=== PATIENT | male | born 1955 | race Caucasian/White ===

== ENCOUNTER 2019-03-10 01:14 | Outpatient (CLI) | payer MEDICARE, OTHER, SELFPAY ==
[2019-03-10 11:45] LABS: CREATININE 1.26 mg/dL (0.70-1.30); Calculated LDL 99 mg/dL; Cholesterol 173 mg/dL (50-200); Estimated GFR 57.44 (mL/min/1.73m2); Glucose 99 mg/dL (70-100); HDL Cholesterol 43 mg/dL (40-60); Triglyceride 157 mg/dL (30-150)
[2019-03-11 11:21] LABS: PSA, Screening 3.9 ng/ml (0-4.5)
== END 2019-03-10 01:34 ==
PROVIDERS: PCP Family Medicine; Visit Provider Family Medicine
DX: E78.5 Hyperlipidemia, unspecified (principal); I10 Essential (primary) hypertension; Z12.5 Encounter for screening for malignant neoplasm of prostate; E74.39 Other disorders of intestinal carbohydrate absorption
CPT/HCPCS: 36415; 80061; 82947; 83721; 84153; 82565; 84132

== ENCOUNTER → 2019-05-26 11:01 | Outpatient (BNVA) | payer MEDICARE, OTHER, SELFPAY | PROVIDERS: PCP Family Medicine; Referring Provider Family Medicine; Visit Provider Nurse Practitioner Gerontology | DX: R35.0 Frequency of micturition (principal); R97.20 Elevated prostate specific antigen [PSA]; I10 Essential (primary) hypertension | CPT/HCPCS: 99203 ==

== ENCOUNTER 2019-08-29 01:16 | Outpatient (CLI) | payer MEDICARE, SELFPAY ==
[2019-09-01 11:22] LABS: PSA, Screening 2.9 ng/mL (0.0-4.5)
== END 2019-08-29 01:36 ==
PROVIDERS: PCP Family Medicine; Visit Provider Nurse Practitioner Gerontology
DX: R97.20 Elevated prostate specific antigen [PSA] (principal); Z12.5 Encounter for screening for malignant neoplasm of prostate
CPT/HCPCS: 36415; 84153

== ENCOUNTER 2020-02-20 03:05 | Outpatient (CLI) | payer MEDICARE, OTHER, SELFPAY ==
[2020-02-20 12:41] LABS: CREATININE 1.54 mg/dL (0.70-1.30); Calculated LDL 105 mg/dL (<100); Cholesterol 193 mg/dL (<200); Estimated GFR 45.42 (mL/min/1.73m2); HDL Cholesterol 44 mg/dL (40-60); Potassium 3.9 mmol/L (3.5-5.1); Triglyceride 221 mg/dL (<150)
[2020-02-20 13:01] LABS: COMMENT (LAB VIEW ONLY) 138.81 mg/dL
[2020-02-20 13:21] LABS: Microalb ug/mg Crea 311.2 ug/mg Cr
[2020-02-23 10:36] LABS: PSA, Screening 3.2 ng/mL (0.0-4.5)
== END 2020-02-20 03:25 ==
PROVIDERS: Nurse Practitioner Gerontology; PCP Family Medicine; Visit Provider Family Medicine
DX: I10 Essential (primary) hypertension (principal); E78.5 Hyperlipidemia, unspecified; R39.9 Unspecified symptoms and signs involving the genitourinary system; R97.20 Elevated prostate specific antigen [PSA]; Z12.5 Encounter for screening for malignant neoplasm of prostate
CPT/HCPCS: 36415; 80061; 84153; 82043; 82565; 82570; 84132

== ENCOUNTER 2020-03-03 09:18 | Outpatient (CLI) | payer MEDICARE, OTHER, SELFPAY ==
[2020-03-03 12:37] LABS: Glucose 116 mg/dL (74-106)
[2020-03-06 15:24] LABS: Testosterone, Free 4.64 ng/dL (3.47-13.0); Testosterone, Total 258 ng/dL (240-950)
== END 2020-03-03 09:38 ==
PROVIDERS: PCP Family Medicine; Visit Provider Family Medicine
DX: R73.9 Hyperglycemia, unspecified; R35.0 Frequency of micturition; R39.15 Urgency of urination; R97.20 Elevated prostate specific antigen [PSA]
CPT/HCPCS: 36415; 82947; 84402; 84403; 99213

== ENCOUNTER → 2020-05-07 09:51 | Outpatient (BNVA) | payer MEDICARE, OTHER, SELFPAY | PROVIDERS: PCP Family Medicine; Referring Provider Family Medicine; Visit Provider Physical Therapy Assistant | DX: Z12.11 Encounter for screening for malignant neoplasm of colon (principal); I10 Essential (primary) hypertension ==

== ENCOUNTER 2020-05-24 08:08 | Day surgery (SDC) | payer MEDICARE, OTHER, SELFPAY ==
--- NOTE | 2020-05-24 07:04 | COLE_ITS ---
Date of service: 05/24/20 Time of Service: 09:42 Colonoscopy Report Date of procedure: 05/24/20 Pre-op diagnosis general: Colon Cancer Screening Post-op diagnosis procedure note: other (polyps and mild diverticulosis) Procedure: Colonoscopy with polypectomy by forceps and cold snare Surgeon: Dionne Banks Anesthesia proc note operative: other (General/ ASA 2/Britney Mckeon, MARÍA) Estimated blood loss (mL): 3 Pathology: other (cecal polyp, descending polyp) Complications: None Disposition: same day Indications: The patient is here for Colonoscopy pre-op. His last screening was in 2009 and was unremarkable. He has no family history of colon cancer. He has not had any bowel habit changes. -Discussed colonoscopy bowel prep as well as the procedure. Discussed possible complications of the procedure to include bleeding, pain, perforation, missed small lesion/polyp, sore throat, aspiration and adverse reaction to the medications. Questions were answered to patient?s satisfaction. No guarantees were implied or given. Prep: Miralax/Dulcolax Procedure Start Time: :12 Procedure End Time: :34 Retraction Time: 15 minutes Findings: one small sessile polyp and one small pedunculated polyp Mild right sided diverticulosis Procedure Description: After informed consent was obtained the patient was taken to the procedure room and placed in a left decubitous position. Monitors were applied and a time out was done. The patients name, date of , procedure, allergies to medications and metal in their body was reviewed. The patient was then sedated. Once sedated and comfortable a rectal exam was done. External exam was normal. Internal exam revealed a normal sphincter tone and no palpable masses. The prostate felt smooth and slightly enlarged. The scope was then introduced and retro-flexed. No internal hemorrhoids, masses or polyps were identified on retro-flexion. The scope was then advanced to the cecum without difficulty. The ileocecal valve and appendiceal orifice were identified. The prep was good. The scope was then slowly retracted over 15 minutes back into the rectum. Polyps were removed with cold forceps in the cecum and with cold snare in the descending colon. There was mild diverticulo sis of the cecum and ascending colon. The scope was removed and the patient was woken up and taken back to Same day surgery in stable condition. The patient tolerated the procedure well and there were no immediate complications. Follow up: The patient should follow up in 3-5 years unless they develop changes in bowel habits or other new gastrointestinal complaints.
--- NOTE | 2020-05-24 07:06 | W.PM.DSUDISC ---
Discharge Plan Disposition Patient Disposition: HOME Condition: Good Discharge Details Reason For Visit: Colonoscopy Attending Provider: Dionne Banks Primary Care Provider: Alen Alexandre Home Meds and New Rx's Prescriptions: Continued aspirin [Aspir-81] 81 mg tablet,delayed release (DR/EC) 81 mg PO DAILY Qty: 90 RF: 3 amlodipine [Norvasc] 10 mg tablet 10 mg PO DAILY Qty: 90 RF: 3 atenolol 100 mg tablet 100 mg PO DAILY Qty: 90 RF: 3 atorvastatin 40 mg tablet 40 mg PO QPM Qty: 90 RF: 3 losartan [Cozaar] 100 mg tablet 100 mg PO DAILY Qty: 90 RF: 3 sildenafil (pulm.hypertension) 20 mg tablet 20 - 60 mg PO DAILY MDD 60 mg (per insurance) PRN (Reason: sexual activity) Qty: 30 RF: 5 Discontinued polyethylene glycol 3350 17 gram/dose powder 238 g PO ONCE Qty: 238 RF: 0 bisacodyl [Dulcolax (bisacodyl)] 5 mg tablet,delayed release (DR/EC) 5 mg PO ONCE Qty: 4 RF: 0 Discharge Instructions Instructions: Diverticulosis (DC), Colorectal Polyps (DC) Additional Instructions: Findings: 2 polyps mild diverticulosis Follow up: 3-5 years Please call if you develop: fevers >101.5 Nausea or Vomiting Abdominal pain that is not transient DAY SURGERY UNIT POST ENDOSCOPY INSTRUCTIONS 1. Because there will be medication in your system for the next 24 hours, you may feel a little sleepy. Your coordination will be affected. Therefore: a. Do not drive or operate dangerous equipment for 24 hours. b. Do not drink alcohol beverages for 24 hours (not even beer). c. Plan to go home and rest for the day. 2. Generally there are no restrictions on your activity after a day or so has gone by, but you may feel a bit fatigued for a few days. 3 After you arrive home you may have a light meal and return to a normal diet as you can tolerate it without feeling sick to your stomach. 4. After surgery, you may feel pain or discomfort. This should be only transient, but if it persists please contact your doctor. 5. If there are any questions regarding the findings of your procedure, please feel free to contact your doctor. 6. If you are unable to contact your doctor with a problem, contact the hospital at [phone]. 3. Continue all your regular medications unless directed otherwise. I understand the above instructions and have no questions. Signature of Patient or Responsible Adult Escort Date/Time Name of Responsible Adult Escort Signature of Nurse Date/Time Activity:: Activity as Tolerated Diet:: high fiber diet Discharge Orders Discharge Orders: Discharge Order (Routine); Ordered 05/24/20 Ordered By: Dionne Banks
[2020-05-24 08:14] VITALS: BP 150/96; PULSE 62; RESP 20; TEMP 36.5; O2SAT 95
[2020-05-24] MEDS: Lactated Ringers 1,000 ML 80 ML IV (08:36)
--- NOTE | 2020-05-24 09:20 | BOWEL_PTH ---
PATIENT: Juan Ortiz LOC: [facility] U#:[id number] AGE/SX: 64/M ROOM: RE05/24/[address]: Dionne Banks MD : [id number] BED: DIS: 05/24/2020 SPEC #: [id number] RECD: 05/24/20 12:51 STATUS: KRISHAN REQ #: [id number] EMMANUEL: 05/24/20 09:[address]: Dionne Banks DEPT: Surgical Specimen RECD BY: Lissette Rashid ENTERED: 05/24/20 12:51 SP TYPE: Bowel OTHR DR: Alen Alexandre MD Tissues: 1 - BIOPSY BOWEL 2 - BIOPSY BOWEL Procedures: GROSS AND MICRO LEVEL 4 Comments: [id number]
[2020-05-24 10:10] VITALS: BP 128/80; PULSE 52; RESP 18; TEMP 36.6; O2SAT 98
== END 2020-05-24 10:33 | disposition home or self-care (01) ==
PROVIDERS: PCP Family Medicine; Visit Provider Surgery
PROC: 0DJD8ZZ Inspection of Lower Intestinal Tract, Via Natural or Artificial Opening Endoscopic (ICD-10-PCS; CPT 45378; principal; 2020-05-24 09:30)
DX: Z12.11 Encounter for screening for malignant neoplasm of colon (principal); D12.0 Benign neoplasm of cecum; D12.4 Benign neoplasm of descending colon; I10 Essential (primary) hypertension; E78.00 Pure hypercholesterolemia, unspecified
CPT/HCPCS: 45385; 45380; 88305; J2001

== ENCOUNTER 2020-07-12 15:40 | Outpatient (CLI) | payer MEDICARE, OTHER, SELFPAY ==
--- NOTE | 2020-07-12 15:15 | DI.RAD_ITS ---
EXAM: XR KNEE LT 3V AP,LAT,BILLY CLINICAL HISTORY: left knee pain. TECHNIQUE: 2D digital imaging was performed. COMPARISON: CR XR KNEE RT 3V AP,LAT,BILLY from 07/12/2020 FINDINGS: There is no evidence of acute fracture. The does appear to be a joint effusion and posteriorly there is a prominent calcification which is probably within popliteal fossa Ingram cyst. This calcificatio n measures 2 x 1.8 centimetres. There is advanced [id number] narrowing of the medial compartment. Moderate degenerative changes including calcinosis seen in the lateral compartment. Moderate-advanc ed degenerative changes in patellofemoral compartment. No osseous lesions. IMPRESSION: Advanced osteoarthritic degenerative changes. Joint effusion. 20 x 18 millimeter posterior calcific ation which is probably within a Ingram cyst in the medial popliteal fossa. DATA REPOSITORY: RADIATION DOSE DELIVERED:
--- NOTE | 2020-07-12 15:15 | DI.RAD_ITS ---
EXAM: XR KNEE RT 3V AP,LAT,BILLY CLINICAL HISTORY: right knee pain. TECHNIQUE: 2D digital imaging was performed. COMPARISON: CR RIGHT KNEE COMPLETE from 12/10/2008 FINDINGS: Two views reveal no evidence of fracture. Small joint effusion noted. Advanced osteoarthritic degen erative changes are noted. There is moderate joint space narrowing in the medial compartment margina l osteophytes. Less narrowing of the lateral compartment but with chondrocalcinosis. Advanced degen erative changes in the patellofemoral compartment. IMPRESSION: Advanced osteoarthritic changes. Small joint effusion. DATA REPOSITORY: RADIATION DOSE DELIVERED:
== END 2020-07-12 16:00 ==
PROVIDERS: PCP Family Medicine; Referring Provider Family Medicine; Visit Provider Student in an Organized Health Care Education/Training Program
DX: M17.0 Bilateral primary osteoarthritis of knee (principal); M25.462 Effusion, left knee; M25.461 Effusion, right knee; Z98.890 Other specified postprocedural states
CPT/HCPCS: 73562; 99203; 99214

== ENCOUNTER 2020-08-03 14:19 | Outpatient (CLI) | payer MEDICARE, OTHER, SELFPAY ==
--- NOTE | 2020-08-03 14:00 | DI.RAD_ITS ---
EXAM: XR STANDING ALIGNMENT and XR knee LT 1 V CLINICAL HISTORY: PRE OP L TKA. TECHNIQUE: 2D digital imaging was performed. COMPARISON: CR XR KNEE RT 3V AP,LAT,BILLY from 07/12/2020 CR XR KNEE LT 3V AP,LAT,BILLY from 07/12/2020 CR XR KNEE LT 3V AP,LAT,BILLY from 07/12/2020 FINDINGS: The hips are well maintained. There are again seen marked degenerative changes of the right knee renetta racterized by joint space narrowing, periarticular spurring and subchondral sclerosis. Chondrocalcin osis is present. The findings are most marked in the medial femoral tibial joint. Advanced degenera tive changes are also seen in the left knee characterized by joint space narrowing, subchondral scler osis and periarticular spurring. Chondrocalcinosis is present. There is a small left joint effusion . Atherosclerosis is present. The ankles are well maintained. The right lower extremity measures 8 9.4 cm. The left lower extremity measures 80.9 cm. IMPRESSION: Advanced degenerative changes in both knees. DATA REPOSITORY: RADIATION DOSE DELIVERED:
== END 2020-08-03 14:39 ==
PROVIDERS: PCP Family Medicine; Referring Provider Family Medicine; Visit Provider Physician Assistant
DX: M17.0 Bilateral primary osteoarthritis of knee (principal)
CPT/HCPCS: 73560; 77073

== ENCOUNTER 2020-08-05 01:29 | Outpatient (CLI) | payer MEDICARE, OTHER, SELFPAY ==
[2020-08-05 09:28] LABS: HCT 44.8 % (40.0-50.0); HGB 15.7 g/dL (13.5-17.5); MCH 30.2 pg (27.0-33.0); MCV 86.2 fL (80-95); MPV 9.3 fL (8.0-11.0); Platelet Count 269 10^3/uL (130-400); RDW 11.9 % (11.8-14.1); RDW-SD 37.6 fL; WBC 8.75 10^3/uL (4.4-10.8)
[2020-08-05 10:25] LABS: Anion Gap 6.9 mmol/L (3-11); BUN 21 mg/dL (7-18); CO2 28.1 mmol/L (21.0-32.0); CREATININE 1.62 mg/dL (0.70-1.30); Calcium 9.1 mg/dL (8.5-10.1); Chloride 105 mmol/L (98-107); Estimated GFR 42.84 (mL/min/1.73m2); Glucose 98 mg/dL (74-106); Potassium 3.9 mmol/L (3.5-5.1); Sodium 140 mmol/L (136-145)
== END 2020-08-05 01:49 ==
PROVIDERS: PCP Family Medicine; Visit Provider Student in an Organized Health Care Education/Training Program
DX: M25.562 Pain in left knee (principal); M17.12 Unilateral primary osteoarthritis, left knee; Z01.818 Encounter for other preprocedural examination; Z01.812 Encounter for preprocedural laboratory examination
CPT/HCPCS: 36415; 80048; 85027

== ENCOUNTER 2020-08-05 02:40 | Outpatient (CLI) | payer MEDICARE, OTHER, SELFPAY ==
[2020-08-06 16:54] LABS: COVID-19 RT-PCR UVMMC Result Negative (Negative)
== END 2020-08-05 03:00 ==
PROVIDERS: PCP Family Medicine; Visit Provider Student in an Organized Health Care Education/Training Program
DX: Z11.59 Encounter for screening for other viral diseases (principal); Z01.818 Encounter for other preprocedural examination
CPT/HCPCS: 36415; 80048; 85027; U0003

== ENCOUNTER 2020-08-10 08:19 | Day surgery (SDC) | payer MEDICARE, OTHER, SELFPAY ==
[2020-08-10] VITALS (7 sets, daily range): BP systolic 115–156; BP diastolic 65–97; PULSE 53–59; RESP 11–18; TEMP 36.1–36.6; O2SAT 95–98
[2020-08-10] MEDS: Lactated Ringers 1,000 ML 80 ML IV (09:20)
[2020-08-10] MEDS: Gabapentin 300 MG CAP PO (09:37)
[2020-08-10] MEDS: Acetaminophen 500 MG TAB 1000 MG PO ×2 (09:37→15:24)
[2020-08-10] MEDS: Celecoxib 200 MG CAP 400 MG PO (09:37)
--- NOTE | 2020-08-10 09:45 | W.PM.DS.N ---
Documented by User: Sandra Crespoxon 08/10/20 09:51 DS: Diagnosis Discharge Diagnosis (1) Left knee DJD: Status: Chronic Discharge Plan Disposition Patient Disposition: HOME Condition: Good Discharge Details Reason For Visit: Left knee DJD Attending Provider: Howard Hernandez Primary Care Provider: Alen Alexandre Home Meds and New Rx's Prescriptions: New acetaminophen 500 mg tablet 500 mg PO Q6H PRN (Reason: pain) Qty: 60 RF: 2 celecoxib [Celebrex] 200 mg capsule 200 mg PO BID Qty: 60 RF: 0 docusate sodium [Colace] 100 mg capsule 100 mg PO BID Qty: 30 RF: 0 pantoprazole 40 mg tablet,delayed release (DR/EC) 40 mg PO DAILY Qty: 30 RF: 0 oxycodone 5 mg tablet 5 mg PO Q4H PRN (Reason: severe post-operative pain) Qty: 18 RF: 0 aspirin 81 mg tablet,delayed release (DR/EC) 81 mg PO BID Qty: 60 RF: 0 Continued amlodipine [Norvasc] 10 mg tablet 10 mg PO DAILY Qty: 90 RF: 3 atenolol 100 mg tablet 100 mg PO DAILY Qty: 90 RF: 3 atorvastatin 40 mg tablet 40 mg PO QPM Qty: 90 RF: 3 losartan [Cozaar] 100 mg tablet 100 mg PO DAILY Qty: 90 RF: 3 sildenafil (pulm.hypertension) 20 mg tablet 20 - 60 mg PO DAILY MDD 60 mg (per insurance) PRN (Reason: sexual activity) Qty: 30 RF: 5 Discontinued aspirin [Aspir-81] 81 mg tablet,delayed release (DR/EC) 81 mg PO DAILY Qty: 90 RF: 3 Discharge Instructions Additional Instructions: Total Knee Discharge Instructions Activity: The most important activity is to walk. You should try to take short walks a few times a day. It is important that when resting you work on keeping the knee straight. Avoid putting a pillow behind the knee as this will encourage flexion. Work on range of motion exercises as provided by Physical Therapy. - Start outpatient physical therapy within 2 weeks. - You should wear the DANNIELLE hose on both legs for 2 weeks. Dressing: Keep the surgical dressing in place for at least one week. After the first week it may be removed and replace with light gauze and tape or nothing. It may get wet after 3 days but avoid soaking the dressing. If it gets wet, just lightly pat dry. Medications: - You should take Tylenol and anti-inflammatory Celebrex as your primary pain control medications. If the Celebrex is too expensive or not covered, please call the office for another alternative (Advil/Ibuprofen or Naproxen/Aleve). Had previously discussed your reaction to Sulfa medications, since you did not experience an anaphylactic reaction you are able to take Celebrex. If you develop any symptoms please contact office; if you experience difficulty breathing or throat swelling you should present to emergency room immediately. - You have been prescribed a stronger pain medication Oxycodone for breakthrough pain, take as needed as prescribed. - You have also been prescribed a stomach acid reduction agent Pantoprozole to help reduce stomach acid and reflux. - You will be taking Aspirin 81mg twice a day for DVT prevention unless instructed otherwise. - If you have constipation you should take Colace (which was prescribed) or Miralax (which you may purchase [id number]). It takes most people 3-4 days to have a bowel movement. Follow-up: 2 weeks If you have any acute concerns or questions, please do not hesitate to contact the office at [phone]. You may contact Dr. Hernandez with any questions after hours through the hospital at [phone] or on his cell phone at [phone]. Stand Alone Forms: Anes.Nerve Block Instructions, DSU Post op Instructions Referrals: Howard Hernandez MD [ [facility] STAFF PHYSICIAN] - 08/23/20 11:00 am Equipment/Supplies: Walker Activity:: Elevate Remove Dressings/Wound Care:: Do Not Remove Shower/Bathe:: 72 hours Diet:: As Tolerated Discharge Orders Discharge Orders: Discharge Order (Routine); Ordered 08/10/20 Ordered By: Howard Hernandez DS: Data Vitals/I&O Vitals and I&O: Vital Signs Temperature 36.6 C 08/10/20 08:52 Pulse 57 L 08/10/20 08:52 Pulse Rhythm Regular 08/10/20 08:52 Respiratory Rate 18 08/10/20 08:52 Respiratory Depth Normal 08/10/20 08:52 Blood Pressure 156/97 H 08/10/20 08:52 Pulse Oximetry 96 08/10/20 08:52 Oxygen Delivery Method Room Air 08/10/20 08:52 Oxygen Flow Rate 0 08/10/20 08:52 Pain Level 0 08/10/20 08:52 Intake & Output 08/09/20 08/09/20 08/10/20 11:59 23:59 11:59 Weight 92 kg PFSH Medical History Degenerative joint disease of right knee Family history of coronary arteriosclerosis (12/20/15) Father at 50 Family history of diabetes mellitus (12/20/15) mother Left knee DJD 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) Rising PSA level Screening for colon cancer Surgical History H/O hernia repair History of knee surgery Hx of colonoscopy KNEE SURGERY bilateral Skin Cancer Removal MELANOMA Family History Mother , 65 Diabetes Essential hypertension Heart disease Father , 53 Diabetes Essential hypertension Heart disease Sister Diabetes Hyperlipidemia Heart disease Hypertension Social History Smoking/Tobacco Use Status: Never Smoking risk assessment performed?: Yes Alcohol Intake: current Alcohol Intake frequency: a few times a month Alcohol type: beer Drug use: Rarely Substance use type: marijuana Caregiver/Support person: No Household members: spouse Housing: house Communication Needs: None Pets and animals: No Sexually active: Yes Do you think of yourself as: straight/heterosexual Current gender identity: male What is your relationship status?: How often do you talk on the phone with friends or family?: three or more times per week How often do you get together with friends or relatives?: three or more times per week How often do you attend jehovah's witness or latter day services?: 1-3 times per year Do you belong to any clubs or organized social groups?: decline to answer Panel score (0-1 are the most socially isolated patients): 2 What type of physical activity do you participate in: walking, swimming and other Duration: 45-60 minutes/day Frequency: 5-6 times per week Sonja/Restorationism: Tenriism Special sonja needs: No Seatbelt use: always Drive intox or ride w/intox trolley coach driver: No Do you feel safe at home: Yes Do you feel safe in your relationship?: Yes Documented by User: Howard Hernandez MD 08/10/20 15:08 Date of service: 08/10/20 Time of Service: 15:06 Discharge Plan Disposition Patient Disposition: HOME Condition: Good Discharge Details Reason For Visit: Left knee DJD Attending Provider: Howard Hernandez Primary Care Provider: Alen Alexandre Home Meds and New Rx's Prescriptions: New acetaminophen 500 mg tablet 500 mg PO Q6H PRN (Reason: pain) Qty: 60 RF: 2 celecoxib [Celebrex] 200 mg capsule 200 mg PO BID Qty: 60 RF: 0 docusate sodium [Colace] 100 mg capsule 100 mg PO BID Qty: 30 RF: 0 pantoprazole 40 mg tablet,delayed release (DR/EC) 40 mg PO DAILY Qty: 30 RF: 0 oxycodone 5 mg tablet 5 mg PO Q4H PRN (Reason: severe post-operative pain) Qty: 18 RF: 0 aspirin 81 mg tablet,delayed release (DR/EC) 81 mg PO BID Qty: 60 RF: 0 Continued amlodipine [Norvasc] 10 mg tablet 10 mg PO DAILY Qty: 90 RF: 3 atenolol 100 mg tablet 100 mg PO DAILY Qty: 90 RF: 3 atorvastatin 40 mg tablet 40 mg PO QPM Qty: 90 RF: 3 losartan [Cozaar] 100 mg tablet 100 mg PO DAILY Qty: 90 RF: 3 sildenafil (pulm.hypertension) 20 mg tablet 20 - 60 mg PO DAILY MDD 60 mg (per insurance) PRN (Reason: sexual activity) Qty: 30 RF: 5 Discontinued aspirin [Aspir-81] 81 mg tablet,delayed release (DR/EC) 81 mg PO DAILY Qty: 90 RF: 3 Discharge Instructions Additional Instructions: Total Knee Discharge Instructions Activity: The most important activity is to walk. You should try to take short walks a few times a day. It is important that when resting you work on keeping the knee straight. Avoid putting a pillow behind the knee as this will encourage flexion. Work on range of motion exercises as provided by Physical Therapy. - Start outpatient physical therapy within 2 weeks. - You should wear the DANNIELLE hose on both legs for 2 weeks. Dressing: Keep the surgical dressing in place for at least one week. After the first week it may be removed and replace with light gauze and tape or nothing. It may get wet after 3 days but avoid soaking the dressing. If it gets wet, just lightly pat dry. Medications: - You should take Tylenol and anti-inflammatory Celebrex as your primary pain control medications. If the Celebrex is too expensive or not covered, please call the office for another alternative (Advil/Ibuprofen or Naproxen/Aleve). Had previously discussed your reaction to Sulfa medications, since you did not experience an anaphylactic reaction you are able to take Celebrex. If you develop any symptoms please contact office; if you experience difficulty breathing or throat swelling you should present to emergency room immediately. - You have been prescribed a stronger pain medication Oxycodone for breakthrough pain, take as needed as prescribed. - You have also been prescribed a stomach acid reduction agent Pantoprozole to help reduce stomach acid and reflux. - You will be taking Aspirin 81mg twice a day for DVT prevention unless instructed otherwise. - If you have constipation you should take Colace (which was prescribed) or Miralax (which you may purchase [id number]). It takes most people 3-4 days to have a bowel movement. Follow-up: 2 weeks If you have any acute concerns or questions, please do not hesitate to contact the office at [phone]. You may contact Dr. Hernandez with any questions after hours through the hospital at [phone] or on his cell phone at [phone]. Stand Alone Forms: Anes.Nerve Block Instructions, DSU Post op Instructions Referrals: Howard Hernandez MD [ [facility] STAFF PHYSICIAN] - 08/23/20 11:00 am Equipment/Supplies: Walker Activity:: Elevate Remove Dressings/Wound Care:: Do Not Remove Shower/Bathe:: 72 hours Diet:: As Tolerated Discharge Orders Discharge Orders: Discharge Order (Routine); Ordered 08/10/20 Ordered By: Howard Hernandez DS: Summary Status at Discharge Functional status at discharge: uses cane/walker Overall status at discharge: patient is progressing back to baseline Mental Status: mental status grossly normal Speech and Movement: speech and movement normal Mood: congruent mood Affect: normal affect Exam Psych Mental Status: mental status grossly normal Speech and Movement: speech and movement normal Mood: congruent mood Affect: normal affect COUNTS INCLUDE 234 BEDS AT THE [facility] Medical History Degenerative joint disease of right knee Family history of coronary arteriosclerosis (12/20/15) Father at 50 Family history of diabetes mellitus (12/20/15) mother Left knee DJD 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) Rising PSA level Screening for colon cancer Surgical History H/O hernia repair History of knee surgery Hx of colonoscopy KNEE SURGERY bilateral Skin Cancer Removal MELANOMA Family History Mother , 65 Diabetes Essential hypertension Heart disease Father , 53 Diabetes Essential hypertension Heart disease Sister Diabetes Hyperlipidemia Heart disease Hypertension Social History Smoking/Tobacco Use Status: Never Smoking risk assessment performed?: Yes Alcohol Intake: current Alcohol Intake frequency: a few times a month Alcohol type: beer Drug use: Rarely Substance use type: marijuana Caregiver/Support person: No Household members: spouse Housing: house Communication Needs: None Pets and animals: No Sexually active: Yes Do you think of yourself as: straight/heterosexual Current gender identity: male What is your relationship status?: How often do you talk on the phone with friends or family?: three or more times per week How often do you get together with friends or relatives?: three or more times per week How often do you attend jehovah's witness or latter day services?: 1-3 times per year Do you belong to any clubs or organized social groups?: decline to answer Panel score (0-1 are the most socially isolated patients): 2 What type of physical activity do you participate in: walking, swimming and other Duration: 45-60 minutes/day Frequency: 5-6 times per week Sonja/Restorationism: Tenriism Special sonja needs: No Seatbelt use: always Drive intox or ride w/intox trolley coach driver: No Do you feel safe at home: Yes Do you feel safe in your relationship?: Yes
[2020-08-10] MEDS: ceFAZolin 2 GM/50 ML BAG IVPB (10:47)
[2020-08-10] MEDS: Bupivacaine 0.25% Pres-Free 30 ML VIAL (11:19)
[2020-08-10] MEDS: Bupivacaine LIPOSOME/PF 133 MG/10 ML VIAL IJ (11:20)
[2020-08-10] MEDS: Ketorolac 30 MG/ML VIAL (11:20)
[2020-08-10] MEDS: Normal Saline 50 ML (11:20)
--- NOTE | 2020-08-10 13:50 | PT.INIE ---
Date of service: 08/10/20 Time of Service: 13:50 PT Notes Visit Reasons: Left knee DJD Physical Therapy Inpatient Initial Evaluation Date: 08/10/2020 Referring Doctor: POONAM Constantino PT Orders: PT CONSULT: Status post Ortho surgery. Precautions: Fall. Standard. WBAT on the left LE. Patient Profile/Admitting Diagnosis: Juan is a 64-year-old male with primary unilateral osteoarthritis of the left knee and status post left total knee arthroplasty on postoperative day 0. 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 Independent with all aspects of ADLs prior to surgery. No falls in the past 12 months. Equipment Owned/DME: [facility], [facility] Subjective: Agreeable to PT consult. Reports 1-2/10 pain in the left knee with weight bearing. Denies headache, chest pain, and dizziness throughout session. Objective: General Observation: Supine in stretcher. IV in right UEs. Сергей wraps in left knee. Cryocuff on left knee. TDS on right leg. Mental Status: Alert and oriented x4 Pain: 1?2/10 pain in the left knee. Vital Signs: Within normal limits as monitored before during and after PT consult by nurse Sanz ROM: Right Upper Extremity: Shoulder Flexion WFL. Shoulder abduction WFL. Elbow flexion WFL. Wrist flexion WFL. Opening and closing of hand WFL. Left Upper Extremity: Shoulder Flexion WFL. Shoulder abduction WFL. Elbow flexion WFL. Wrist flexion WFL. Opening and closing of hand WFL. Right Lower Extremity: Hip flexion WFL. Hip abduction WFL. Knee flexion WFL. Ankle dorsiflexion WFL. Ankle plantarflexion WFL. Left Lower Extremity: Hip flexion WFL. Hip abduction WFL. Knee flexion 10 to 95 degrees. Knee extension -10 degrees ankle dorsiflexion WFL. Ankle plantarflexion WFL. Strength: Right Upper Extremity: Shoulder flexors 5/5. Shoulder abductors 5/5. Elbow flexors 5/5. Elbow extensors 5/5. Business Analysis Analyst strong. Left Upper Extremity: Shoulder flexors 5/5. Shoulder abductors 5/5. Elbow flexors 5/5. Elbow extensors 5/5. Business Analysis Analyst strong. Right Lower Extremity: Hip flexors 5/5. Hip abductors 5/5. Knee flexors 5/5. Knee extensors 5/5. Ankle dorsiflexors 5/5. Ankle plantarflexors 5/5. Left Lower Extremity:Hip flexors 5/5. Hip abductors 5/5. Knee flexors 3-/5. Knee extensors 3-/5. Ankle dorsiflexors 5/5. Ankle plantarflexors 5/5. Sensation: Intact as to pain and pressure on bilateral lower extremities. Bed Mobility/Transfers: Rolling independent Supine to sit independent Sit to supine independent Sit to stand standby assist Stand to sit standby assist standby Bed to chair assist standby assist Chair to bed assist standby assist Gait: Guided through level surface ambulation of 200 feet using front wheeled walker with standby assist of PT and nurse Umu. Step to gait pattern. Decreased arjun. THERA EX: Instructed on seated level balance exercises consisting of seated hip flexion x 10, LAQs x 10, hip abduction/adduction x 10 without increase in pain. Balance: Static Sitting: Normal Dynamic Sitting: Normal Static Standing: Fair Dynamic Standing: Fair Special Tests: Mobility Limitations Standardized Measure [facility] AM-PAC 6 clicks Basic Mobility Inpatient Short Form: Raw Score: 22 CMS Score: 21% deficit Informed Consent/Education: Patient instructed in purpose of PT consult. HEP instruction, activity intensity, and weight bearing recommendations reviewed with patient. Assessment: Juan requires the use of a front wheeled walker for all mobility ADL performance in order to maximize independence and reduce fall risk at home. He will benefit from outpatient physical therapy services in order to regain independent mobility level without an assistive device. Patient presents with clinical signs and symptoms consistent with current/admitting diagnoses that have resulted to mobility limitations, gait instability, generalized weakness, and impairment of motor control as demonstrated by the following impairment level findings: 1. Decreased strength to left knee major muscle groups 2. Impaired standing balance 3. Impaired activity tolerance 4. Limitation of joint range of motion in left knee Impairments are contributing to the following functional limitations: 1. Inability to safely ambulate without assistive device 2. Increase completion time for mobility ADL performance 3. Increased fall risk 4. Inability to negotiate steps alone safely Patient is assessed as a 18895 moderate complexity based on the following: History: 64-year-old male with impairment level findings, functional limitations, and past medical history as indicated above Examination: Demonstrable impairment in strength, balance, and mobility level with underlying impairments and functional limitations as documented above Presentation:Evolving Decision Makin moderate complexity Goals: N/A. PT evaluation 1 treatment session only for mobility ADL education/training using the front wheeled walker and for HEP instruction. Plan of Care/Treatment Plan: N/A. PT evaluation 1 treatment session only for mobility ADL education/training using the front wheeled walker and for HEP instruction. DISCHARGE RECOMMENDATIONS: Home when cleared by orthopedic surgeon. Outpatient PT services to regain independent mobility level without an assistive device. TREATMENT CODE/TIME: 39070 x 25 minutes, 97 0 x 15 minutes, 15 minutes beginning at 13:50 PM. Thank you for the opportunity to participate in the care of this patient. Adri Olivas PT, DPT, CLT [facility] [place], [place]
--- NOTE | 2020-08-10 20:56 | W.PM.OP ---
Date of service: 08/10/20 Time of Service: 12:56 Operative Note Operative Note DATE OF PROCEDURE: 08/10/20 PRE-OP DIAGNOSIS: Left Knee Osteoarthritis POST-OP DIAGNOSIS: same PROCEDURE: Left Total Knee Replacement SURGEON: Howard Hernandez [employer] SAL[employer] REPRESENTATIVE: Sandra Anthony ANESTHESIA: regional and spinal ESTIMATED BLOOD LOSS: 200 PATHOLOGY: none sent TOURNIQUET TIME: 0 COMPLICATIONS: None Patient was transported to: PACU Patient's condition: stable Implants: 1. Depuy Attune Cementless Cruciate Retaining Femoral Component, Size 9 2. Depuy Attune Cementless Rotating Platform Tibial Component, Size 7 3. Depuy Attune 9x5mm CR/RP Poly 4. Depuy Attune Patellar Component, Size 38mm Indications: I have seen Juan in clinic for symptoms of knee arthritis, confirmed with radiographic findings. Juan has exhausted nonoperative methods and was having significant limitations in daily function and desired better function and less pain. I discussed the technical details of a knee replacement. I explained the risks of the procedure to include, but not limited to, bleeding, infection, pain, stiffness, fracture, damage to nerves and vessels, damage to muscles and tendons, loosening, need for repeat procedure, blood clot and cardiopulmonary demise. Despite these risks, Juan elected to proceed. Findings: There was significant signs of arthritis throughout the knee with deformity of all 3 compartments and large osteophytes. Procedure Description: Juan was greeted in the preoperative holding area where the correct side was identified and marked. The consent was reviewed with the patient and signed. The history and physical was updated. All questions were answered. Preoperative medications were administered: Acetaminophen 1000mg, Celebrex 400mg, and Gabapentin 300mg. An adductor canal block was then administered by the anesthesia team in the PACU. Juan was taken back to the operating room. A spinal anesthestic was then administered. The patient was placed into the supine position on the operating room table. A nonsterile tourniquet was placed high onto the leg but only used for cementing. Posts were placed for positioning during the procedure. All bony prominences were well padded. Prophylactic antibiotics in the form of Cefazolin were administered. 1g of Tranxemic Acid was given intravenously within 30 minutes of incision. The left leg was then prepped with Chloraprep and draped in a standard fashion with impervious stockinette. A second prep with Chloraprep was performed prior to application of Iodine impregnated skin protection. A timeout to confirm correct identity, side and site, procedure, allergies, anesthesia, and medical concerns was performed. With the knee in some flexion, a midline incision was made overlying the knee. Full thickness skin flaps were raised once the extensor mechanism was encountered. These were raised medially and laterally. Any bleeding was controlled with electrocautery. Once the extensor mechanism was fully exposed, a medial parapatellar arthrotomy was performed in a flexed position. All bleeding from the arthrotomy and the geniculate arteries was coagulated. A medial subperiosteal peel was performed with electrocautery to the midcoronal plane. Due to the significant varus deformity the entire medial tibial plateau was exposed. The fat pad was removed while keeping the patellar tendon protected. The anterior distal femur synovium was removed for later visualization. The ACL and PCL were resected and the anterior horn of the lateral meniscus was transected. The knee was then flexed with the patella everted. Large osteophytes from the tibia were removed. Large osteophytes from the femur were removed. Using a step drill, and based on preoperative templating, the femoral canal was entered. This was done with a step drill without any difficulty. The intramedullary distal femoral cut guide was inserted, set to a 5 degree valgus cut and 10mm cut thickness. The distal femoral cut guide was then held in position and pinned. With the soft tissues protected, the distal cut was performed. This was passed over a few times to ensure a planar cut. I then turned attention to the tibia. The extramedullary guide was placed onto the leg. The distal aspect was slid medial to adjust for position of center of ankle and stay in line with shaft of the tibia. Approximately 3-5 degrees of posterior slope was kept in the proximal cutting guide. The center of the guide was aligned with the PCL. The stylus was used to assess cut thickness. The medial side, most involved side, was set for a 3mm cut. This was then held in position and pinned into place with 2 additional pins and a cross pin for stability. The medial and lateral collateral ligaments were protected and the cut was performed. With this completed, it was assessed and noted to be of appropriate dimensions. The guide was removed. A spacer block was inserted and the knee was brought into extension. The 5mm spacer block provided full extension, without hyperextension and with stability of both the medial and lateral collateral ligaments was assessed. The pins from the femur and the tibia were then removed. The distal femur was then sized. The anterior stylus was placed onto the lateral ridge of the anterior femur. This indicated a size 8 femur. The external rotation of the guide was adjusted to 3 degrees to match the epicondylar axis, perpendicular to Cartwright?s line. The 4-in-1 cutting guide was the placed. The posterior medial femur cut was evaluated and appeared of good thickness. The spacer block was inserted underneath the cutting guide and stability was confirmed in 90 degrees of flexion. However this showed some increased laxity with the 5mm spacer which was mostly symmetrical. Therefore, I went up to a size 9 femur and moved the femoral component posteriorly 1.5mm. An samantha wing was used to confirm appropriate position of the anterior cut to avoid notching. This cutting guide was ensured to be flush on the cut surface and then pinned into place with headed pins. While protecting the soft tissues, quad tendon, and collateral ligaments, the anterior and posterior cuts were performed with a saw. The central two pins were removed and the posterior and anterior chamfers were cut next. The notch-cutting guide was placed. This was pinned to lateralize the femoral component as much as possible while keeping it flush on the cut surface. This was then pinned into position. A reciprocating saw was used to make the notch cut. A rasp smoothed the cut surfaces. The medial and lateral menisci were removed. A trial femoral component was then inserted, impacted down to the cut surfaces, and the lug holes were drilled. A provisional trial tibial component was placed and the knee was brought through range of motion. There was noted to be excellent extension and flexion. There was no significant instability. The patella was tracking without thumbs. A size 5mm polyethylene component provided the best range of motion and stability with less than 2mm gapping with medial and lateral stress and full extension without significant hyperextension. The tibial cut surface was fully exposed. The tibia was then sized as a 7. The tibia had been previously marked during trialing to correspond to the center of the tibial component to help with rotation. The trial was aligned to this justin, approximately rotated to the medial 1/3rd of the tibial tubercle. The trial was pinned into place. The tibia was prepared with a reamer and a keel punch and lug holes. The knee was then brought into extension and the patella was measured as 28mm. Using the patellar clamp and cut guide, this was resected to a flat surface with at least 13mm of thickness remaining. The size 38mm patella fit the best. This was oriented and then clamped into position. The lugs were drilled. The trial components were removed. The final components were opened on the back table. The periosteal and capsular tissues, especially posteriorly, around the knee were then systematically injected with a periarticular cocktail consisting of 50cc 0.25% Marcaine, 30mg Ketorolac, 20cc of Exparal and 50cc of injectable saline. The knee was thoroughly irrigated with a pulse lavage and dried. Irrisept was also used to irrigate the tissues. On the back table, with the implants opened, the cement was mixed. One batche of high viscosity cement were prepared with vacuum assistance. After the cement was ready a small amount was placed on the cut surface of the patella and the patellar button was clamped into position and held. During this process attention was turned to the gutters of the knee and for all interfaces for any excess cement. While the cement was hardening, the cementless knee components were placed. Starting with the tibial component, the tibia was subluxed anteriorly and the lug holes of the component were lined up. The tibia was then impacted with an impactor and mallet until the tibial component was in contact with the tibia. The final polyethylene component was inserted. Then, the femoral component was inserted. The lug holes were aligned and the component was impacted into position. The knee was irrigated with Irrisept chlorhexadine solution. This was allowed to sit in the knee for 3 minutes. After the cement had finally cured, approximately 15min, the clamp was removed from the patella and the knee was taken through range of motion. The patella was tracking with a no-thumbs technique. The capsule was then reapproximated with a No. 1 Vicryl at multiple locations. The capsule was finally closed with a No. 2 Stratafix, barbed suture. The tourniquet was then released and the arthrotomy appeared watertight without significant bleeding. The second dosing of 1g TXA was started. Deep tissues were then reapproximated with 0 Vicryl and 2-0 Vicryl. The skin was closed with a running 3-0 Monocryl in a subcuticular fashion. This was reinforced with skin glue. A Mepilex silver dressing was applied along with a [id number]-[id number] MIRIAN wrap. A CryoCuff was applied. Juan was transferred to the hospital bed without difficulty an suffering no apparent complication. Juan has a good prognosis. Physical therapy will start today and without restrictions, weight-bearing as tolerated. Aspirin 81mg BID will be used for DVT prophylaxis.
== END 2020-08-10 15:43 | disposition home or self-care (01) ==
PROVIDERS: PCP Family Medicine; Visit Provider Student in an Organized Health Care Education/Training Program
PROC: (CPT 27447; principal; 2020-08-10 11:00)
DX: M17.12 Unilateral primary osteoarthritis, left knee (principal); M25.562 Pain in left knee; Z96.652 Presence of left artificial knee joint; G89.18 Other acute postprocedural pain; I10 Essential (primary) hypertension
CPT/HCPCS: 27447; C1776; 76942; 97162; 97530; NC; J0690; J1100; J1885; J2250; J2405

== ENCOUNTER 2020-08-23 12:57 | Outpatient (CLI) | payer MEDICARE, OTHER, SELFPAY ==
--- NOTE | 2020-08-23 11:15 | DI.RAD_ITS ---
EXAM: XR STANDING ALIGNMENT CLINICAL HISTORY: 1ST POST OP L TKA. TECHNIQUE: 2D digital imaging was performed. COMPARISON: CR XR STANDING ALIGNMENT from 08/03/2020 FINDINGS: There has been interval placement of a left knee prosthesis which appears to be in satisfactory posit ion. Advanced degenerative changes in the opposite-right knee are noted including advanced narrowing of the medial compartment and marginal osteophytes as well as an element of chondrocalcinosis in the lateral compartment seen. Hips appear relatively unremarkable. Mild degenerative changes in the right hip. No degenerative ch anges seen in the left hip. Ankles appear unremarkable. Talar domes appear unremarkable. IMPRESSION: DATA REPOSITORY: RADIATION DOSE DELIVERED:
--- NOTE | 2020-08-23 11:15 | DI.RAD_ITS ---
EXAM: XR KNEE LT 1V CLINICAL HISTORY: 1ST POST OP L TKA. TECHNIQUE: 2D digital imaging was performed. COMPARISON: Preoperative x-rays 08/03/2020 FINDINGS: Single lateral view reveals satisfactory position alignment of the components of the recently placed prosthesis. No fracture or loosening. There has been patellar resurfacing. Again noted is a prominent calcific density posteriorly measuring 2.3 by 2.0 centimetres. This is mo st probably a calcified intra-articular body within a popliteal mata cyst. IMPRESSION: DATA REPOSITORY: RADIATION DOSE DELIVERED:
== END 2020-08-23 13:17 ==
PROVIDERS: PCP Family Medicine; Referring Provider Family Medicine; Visit Provider Physician Assistant
DX: Z96.652 Presence of left artificial knee joint (principal); M17.11 Unilateral primary osteoarthritis, right knee
CPT/HCPCS: 73560; 77073

== ENCOUNTER 2020-09-10 01:48 | Outpatient (CLI) | payer MEDICARE, OTHER, SELFPAY ==
[2020-09-11 17:13] LABS: COVID-19 RT-PCR Result NEGATIVE (Negative)
== END 2020-09-10 02:08 ==
PROVIDERS: PCP Family Medicine; Visit Provider Student in an Organized Health Care Education/Training Program
DX: Z11.52 Encounter for screening for COVID-19 (principal); Z01.818 Encounter for other preprocedural examination; Z47.1 Aftercare following joint replacement surgery; Z96.652 Presence of left artificial knee joint; M17.11 Unilateral primary osteoarthritis, right knee
CPT/HCPCS: U0003

== ENCOUNTER 2020-09-14 08:28 | Day surgery (SDC) | payer MEDICARE, OTHER, SELFPAY ==
[2020-09-14] VITALS (8 sets, daily range): BP systolic 105–145; BP diastolic 52–95; PULSE 49–59; RESP 12–18; TEMP 36–36.7; O2SAT 94–99
--- NOTE | 2020-09-14 07:27 | W.PM.DS.N ---
Documented by User: Sandra Anthony 09/14/20 07:31 DS: Diagnosis Discharge Diagnosis (1) Degenerative joint disease of right knee: Status: Chronic Discharge Plan Disposition Patient Disposition: HOME Condition: Good Discharge Details Reason For Visit: Right knee DJD Attending Provider: Howard Hernandez Primary Care Provider: Alen Alexandre Home Meds and New Rx's Prescriptions: New aspirin 81 mg tablet,delayed release (DR/EC) 81 mg PO BID 30 Days Qty: 60 RF: 0 acetaminophen 500 mg tablet 500 mg PO Q6H PRN (Reason: pain) Qty: 60 RF: 2 pantoprazole 40 mg tablet,delayed release (DR/EC) 40 mg PO DAILY 30 Days Qty: 30 RF: 0 ibuprofen 600 mg tablet 600 mg PO TID PRN (Reason: pain) Qty: 60 RF: 2 Continued amlodipine [Norvasc] 10 mg tablet 10 mg PO DAILY Qty: 90 RF: 3 atenolol 100 mg tablet 100 mg PO DAILY Qty: 90 RF: 3 atorvastatin 40 mg tablet 40 mg PO QPM Qty: 90 RF: 3 losartan [Cozaar] 100 mg tablet 100 mg PO DAILY Qty: 90 RF: 3 sildenafil (pulm.hypertension) 20 mg tablet 20 - 60 mg PO DAILY MDD 60 mg (per insurance) PRN (Reason: sexual activity) Qty: 30 RF: 5 oxycodone 5 mg tablet 5 mg PO Q4H PRN (Reason: severe post-operative pain) Qty: 18 RF: 0 Discontinued acetaminophen 500 mg tablet 500 mg PO Q6H PRN (Reason: pain) Qty: 60 RF: 2 docusate sodium [Colace] 100 mg capsule 100 mg PO BID Qty: 30 RF: 0 aspirin 81 mg tablet,delayed release (DR/EC) 81 mg PO BID Qty: 60 RF: 0 No Action ibuprofen [Advil] 200 mg Tablet 400 mg PO Q6H PRNRF: 0 Discharge Instructions Additional Instructions: Total Knee Discharge Instructions Activity: The most important activity is to walk. You should try to take short walks a few times a day. It is important that when resting you work on keeping the knee straight. Avoid putting a pillow behind the knee as this will encourage flexion. Work on range of motion exercises as provided by Physical Therapy. - Start outpatient physical therapy within 2 weeks. - You should wear the DANNIELLE hose on both legs for 2 weeks. Dressing: Keep the surgical dressing in place for at least one week. After the first week it may be removed and replace with light gauze and tape or nothing. It may get wet after 3 days but avoid soaking the dressing. If it gets wet, just lightly pat dry. Medications: - You should take Tylenol and anti-inflammatory Ibuprofen as your primary pain control medications. As requested a prescription for ibuprofen was submitted. - From your last surgery you reported having left over oxycodone - another prescription was not submitted. If you need a stronger pain medication for breakthrough pain please contact the office. - You have also been prescribed a stomach acid reduction agent Pantoprozole to help reduce stomach acid and reflux. - You will be taking Aspirin 81mg twice a day for DVT prevention unless instructed otherwise. - If you have constipation you should take Colace (which was prescribed) or Miralax (which you may purchase [id number]). It takes most people 3-4 days to have a bowel movement. Follow-up: 2 weeks If you have any acute concerns or questions, please do not hesitate to contact the office at [phone]. You may contact Dr. Hernandez with any questions after hours through the hospital at [phone] or on his cell phone at [phone]. Stand Alone Forms: Anesthesia Discharge Inst., Anes.Nerve Block Instructions, Abram Michaud ([facility]U) Referrals: Howard Hernandez MD [ [facility] STAFF PHYSICIAN] - Equipment/Supplies: Walker Activity:: Elevate Remove Dressings/Wound Care:: Do Not Remove Shower/Bathe:: 72 hours Diet:: As Tolerated Discharge Orders Discharge Orders: Discharge Order (Routine); Ordered 09/14/20 Ordered By: Howard Hernandez DS: Data Vitals/I&O Vitals and I&O: Intake & Output 09/13/20 09/13/20 09/14/20 11:59 23:59 11:59 Weight 92.533 kg [facility] Medical History Degenerative joint disease of right knee Family history of coronary arteriosclerosis (12/20/15) Father at 50 Family history of diabetes mellitus (12/20/15) mother 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) Rising PSA level Screening for colon cancer Surgical History H/O hernia repair History of knee surgery History of total left knee replacement (08/10/20) Hx of colonoscopy KNEE SURGERY bilateral Skin Cancer Removal MELANOMA Family History Mother , 65 Diabetes Essential hypertension Heart disease Father , 53 Diabetes Essential hypertension Heart disease Sister Diabetes Hyperlipidemia Heart disease Hypertension Social History Smoking/Tobacco Use Status: Never Smoking risk assessment performed?: Yes Alcohol Intake: current Alcohol Intake frequency: a few times a month Alcohol type: beer Drug use: Rarely Substance use type: marijuana Details: alcohol: t-30, marijuana: t-60 Caregiver/Support person: No Household members: spouse Housing: house Communication Needs: None Pets and animals: No Sexually active: Yes Do you think of yourself as: straight/heterosexual Current gender identity: male What is your relationship status?: How often do you talk on the phone with friends or family?: three or more times per week How often do you get together with friends or relatives?: three or more times per week How often do you attend druze or temple services?: 1-3 times per year Do you belong to any clubs or organized social groups?: decline to answer Panel score (0-1 are the most socially isolated patients): 2 What type of physical activity do you participate in: walking, swimming and other Duration: 45-60 minutes/day Frequency: 5-6 times per week Sonja/Nondenominational: Gnosticism Special sonja needs: No Seatbelt use: always Drive intox or ride w/intox cdl flatbed truck driver: No Do you feel safe at home: Yes Do you feel safe in your relationship?: Yes Documented by User: Howard Hernandez MD 09/14/20 15:04 Date of service: 09/14/20 Time of Service: 15:03 Discharge Plan Disposition Patient Disposition: HOME Condition: Good Discharge Details Reason For Visit: Right knee DJD Attending Provider: Howard Hernandez Primary Care Provider: Alen Alexandre Home Meds and New Rx's Prescriptions: New aspirin 81 mg tablet,delayed release (DR/EC) 81 mg PO BID 30 Days Qty: 60 RF: 0 acetaminophen 500 mg tablet 500 mg PO Q6H PRN (Reason: pain) Qty: 60 RF: 2 pantoprazole 40 mg tablet,delayed release (DR/EC) 40 mg PO DAILY 30 Days Qty: 30 RF: 0 ibuprofen 600 mg tablet 600 mg PO TID PRN (Reason: pain) Qty: 60 RF: 2 Continued amlodipine [Norvasc] 10 mg tablet 10 mg PO DAILY Qty: 90 RF: 3 atenolol 100 mg tablet 100 mg PO DAILY Qty: 90 RF: 3 atorvastatin 40 mg tablet 40 mg PO QPM Qty: 90 RF: 3 losartan [Cozaar] 100 mg tablet 100 mg PO DAILY Qty: 90 RF: 3 sildenafil (pulm.hypertension) 20 mg tablet 20 - 60 mg PO DAILY MDD 60 mg (per insurance) PRN (Reason: sexual activity) Qty: 30 RF: 5 oxycodone 5 mg tablet 5 mg PO Q4H PRN (Reason: severe post-operative pain) Qty: 18 RF: 0 Discontinued acetaminophen 500 mg tablet 500 mg PO Q6H PRN (Reason: pain) Qty: 60 RF: 2 docusate sodium [Colace] 100 mg capsule 100 mg PO BID Qty: 30 RF: 0 aspirin 81 mg tablet,delayed release (DR/EC) 81 mg PO BID Qty: 60 RF: 0 No Action ibuprofen [Advil] 200 mg Tablet 400 mg PO Q6H PRNRF: 0 Discharge Instructions Additional Instructions: Total Knee Discharge Instructions Activity: The most important activity is to walk. You should try to take short walks a few times a day. It is important that when resting you work on keeping the knee straight. Avoid putting a pillow behind the knee as this will encourage flexion. Work on range of motion exercises as provided by Physical Therapy. - Start outpatient physical therapy within 2 weeks. - You should wear the DANNIELLE hose on both legs for 2 weeks. Dressing: Keep the surgical dressing in place for at least one week. After the first week it may be removed and replace with light gauze and tape or nothing. It may get wet after 3 days but avoid soaking the dressing. If it gets wet, just lightly pat dry. Medications: - You should take Tylenol and anti-inflammatory Ibuprofen as your primary pain control medications. As requested a prescription for ibuprofen was submitted. - From your last surgery you reported having left over oxycodone - another prescription was not submitted. If you need a stronger pain medication for breakthrough pain please contact the office. - You have also been prescribed a stomach acid reduction agent Pantoprozole to help reduce stomach acid and reflux. - You will be taking Aspirin 81mg twice a day for DVT prevention unless instructed otherwise. - If you have constipation you should take Colace (which was prescribed) or Miralax (which you may purchase [id number]). It takes most people 3-4 days to have a bowel movement. Follow-up: 2 weeks If you have any acute concerns or questions, please do not hesitate to contact the office at [phone]. You may contact Dr. Hernandez with any questions after hours through the hospital at [phone] or on his cell phone at [phone]. Stand Alone Forms: Anesthesia Discharge Inst., [place].Nerve Block Instructions, Abram Michaud ([facility]) Referrals: Howard Hernandez MD [ [facility] STAFF PHYSICIAN] - Equipment/Supplies: Walker Activity:: Elevate Remove Dressings/Wound Care:: Do Not Remove Shower/Bathe:: 72 hours Diet:: As Tolerated Discharge Orders Discharge Orders: Discharge Order (Routine); Ordered 09/14/20 Ordered By: Howard Hernandez DS: Summary Time Spent with Patient providing and/or coordinating discharge services: Less than 30 minutes Status at Discharge Functional status at discharge: uses cane/walker Overall status at discharge: patient is progressing back to baseline Mental Status: mental status grossly normal Speech and Movement: speech and movement normal Mood: congruent mood Affect: normal affect Exam Psych Mental Status: mental status grossly normal Speech and Movement: speech and movement normal Mood: congruent mood Affect: normal affect [facility] Medical History Degenerative joint disease of right knee Family history of coronary arteriosclerosis (12/20/15) Father at 50 Family history of diabetes mellitus (12/20/15) mother 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) Rising PSA level Screening for colon cancer Surgical History H/O hernia repair History of knee surgery History of total left knee replacement (08/10/20) Hx of colonoscopy KNEE SURGERY bilateral Skin Cancer Removal MELANOMA Family History Mother , 65 Diabetes Essential hypertension Heart disease Father , 53 Diabetes Essential hypertension Heart disease Sister Diabetes Hyperlipidemia Heart disease Hypertension Social History Smoking/Tobacco Use Status: Never Smoking risk assessment performed?: Yes Alcohol Intake: current Alcohol Intake frequency: a few times a month Alcohol type: beer Drug use: Rarely Substance use type: marijuana Details: alcohol: t-30, marijuana: t-60 Caregiver/Support person: No Household members: spouse Housing: house Communication Needs: None Pets and animals: No Sexually active: Yes Do you think of yourself as: straight/heterosexual Current gender identity: male What is your relationship status?: How often do you talk on the phone with friends or family?: three or more times per week How often do you get together with friends or relatives?: three or more times per week How often do you attend druze or temple services?: 1-3 times per year Do you belong to any clubs or organized social groups?: decline to answer Panel score (0-1 are the most socially isolated patients): 2 What type of physical activity do you participate in: walking, swimming and other Duration: 45-60 minutes/day Frequency: 5-6 times per week Sonja/Nondenominational: Gnosticism Special sonja needs: No Seatbelt use: always Drive intox or ride w/intox cdl flatbed truck driver: No Do you feel safe at home: Yes Do you feel safe in your relationship?: Yes
[2020-09-14] MEDS: Acetaminophen 500 MG TAB 1000 MG PO (09:03)
[2020-09-14] MEDS: Gabapentin 300 MG CAP PO (09:03)
[2020-09-14] MEDS: Celecoxib 200 MG CAP 400 MG PO (09:04)
[2020-09-14] MEDS: Lactated Ringers 1,000 ML 80 ML IV (09:25)
[2020-09-14] MEDS: ceFAZolin 2 GM/50 ML BAG IVPB (10:21)
[2020-09-14] MEDS: Normal Saline 20 ML VIAL (11:40)
[2020-09-14] MEDS: Ketorolac 30 MG/ML VIAL (11:40)
[2020-09-14] MEDS: Bupivacaine 0.25% Pres-Free 30 ML VIAL (11:40)
--- NOTE | 2020-09-14 14:09 | PT.INIE ---
Date of service: 09/14/20 Time of Service: 14:09 PT Notes Visit Reasons: Right knee DJD Physical Therapy Inpatient Initial Evaluation Date: 09/13/2019 Referring Doctor: POONAM Constantino PT Orders: PT CONSULT: Status post Ortho surgery. Precautions: Fall. Standard. WBAT on the R LE. Patient Profile/Admitting Diagnosis: Juan is a 64-year-old male with primary unilateral osteoarthritis of the right knee and status post right total knee arthroplasty on postoperative day 0. 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 Independent with all aspects of ADLs prior to surgery. No falls in the past 12 months. Equipment Owned/DME: FWW, SPC Subjective: Agreeable to PT consult. Reports 1/10 pain in the R knee with weight bearing. Denies headache, chest pain, and dizziness throughout session. Objective: General Observation: Supine in stretcher. IV in R UE. Сергей wraps in R knee. Cryocuff on R knee. TEDS on L leg. Mental Status: Alert and oriented x4 Pain: 1/10 pain in the left knee. Vital Signs: Within normal limits as monitored before during and after PT consult by nurse Reardon ROM: Right Upper Extremity: Shoulder Flexion WFL. Shoulder abduction WFL. Elbow flexion WFL. Wrist flexion WFL. Opening and closing of hand WFL. Left Upper Extremity: Shoulder Flexion WFL. Shoulder abduction WFL. Elbow flexion WFL. Wrist flexion WFL. Opening and closing of hand WFL. Right Lower Extremity: Hip flexion WFL. Hip abduction WFL. Knee flexion 15 degrees to 95 degrees while seated at edge of bed. Knee extension -15 degrees ankle dorsiflexion WFL. Ankle plantarflexion WFL. Left Lower Extremity: Hip flexion WFL. Hip abduction WFL. Knee flexion 5 to 100 degrees while seated at edge of bed. Knee extension -5 degrees. Ankle dorsiflexion WFL. Ankle plantarflexion WFL. Strength: Right Upper Extremity: Shoulder flexors 5/5. Shoulder abductors 5/5. Elbow flexors 5/5. Elbow extensors 5/5. Oil Seal Assembler strong. Left Upper Extremity: Shoulder flexors 5/5. Shoulder abductors 5/5. Elbow flexors 5/5. Elbow extensors 5/5. Oil Seal Assembler strong. Right Lower Extremity: Hip flexors 5/5. Hip abductors 5/5. Knee flexors 3-/5. Knee extensors 3-/5. Ankle dorsiflexors 5/5. Ankle plantarflexors 5/5. Left Lower Extremity:Hip flexors 5/5. Hip abductors 5/5. Knee flexors 3-/5. Knee extensors 3-/5. Ankle dorsiflexors 5/5. Ankle plantarflexors 5/5. Sensation: Intact as to pain and pressure on bilateral lower extremities. Bed Mobility/Transfers: Rolling independent Supine to sit independent Sit to supine independent Sit to stand supervision Stand to sit supervision Bed to chair supervision Chair to bed supervision Gait: Guided through level surface ambulation of 200 feet using front wheeled walker with standby assist of PT and Nurse Caron. Step-through gait pattern. Stairs: Moderate verbal cues given for safe and correct negotiation of 10 x 4 inch steps while holding onto 1 rail with 1 hand and using a and SPC on the other hand with contact-guard assist of PT and standby assist of nurses Cherelle and Caron for safety. Step to gait pattern. Balance: Static Sitting: Normal Dynamic Sitting: Normal Static Standing: Fair Dynamic Standing: Fair Special Tests: Mobility Limitations Standardized Measure [facility] 6 clicks Basic Mobility Inpatient Short Form: Raw Score: 23 CMS Score: 11% deficit Informed Consent/Education: Patient instructed in purpose of PT consult. HEP instruction, activity intensity, and weight bearing recommendations reviewed with patient. Packet containing TKA exercise protocol has been reviewed and given to patient. Assessment: Juan requires the use of a front wheeled walker for all mobility ADL performance in order to maximize independence and reduce fall risk at home. He will benefit from outpatient physical therapy services in order to regain independent mobility level without an assistive device. Patient presents with clinical signs and symptoms consistent with current/admitting diagnoses that have resulted to mobility limitations, gait instability, generalized weakness, and impairment of motor control as demonstrated by the following impairment level findings: 1. Decreased strength to R knee major muscle groups 2. Limitation of joint range of motion in R knee 3. Continued ROM limitation in L knee Impairments are contributing to the following functional limitations: 1. Inability to safely ambulate without FWW 2. Increase completion time for mobility ADL performance 3. Increased fall risk 4. Inability to negotiate steps alone safely without an SPC Patient is assessed as a 59564 moderate complexity based on the following: History: 64-year-old male with impairment level findings, functional limitations, and past medical history as indicated above Examination: Demonstrable impairment in strength, balance, and mobility level with underlying impairments and functional limitations as documented above Presentation:Evolving Decision Makin moderate complexity Goals: N/A. PT evaluation 1 treatment session only for mobility ADL education/training using the front wheeled walker and for HEP instruction. Plan of Care/Treatment Plan: N/A. PT evaluation 1 treatment session only for mobility ADL education/training using the front wheeled walker and for HEP instruction. DISCHARGE RECOMMENDATIONS: Home when cleared by orthopedic surgeon. Outpatient PT services to regain independent mobility level without an assistive device. TREATMENT CODE/TIME: NC. Thank you for the opportunity to participate in the care of this patient. Adri Olivas PT, DPT, CLT [facility] [place], [place]
--- NOTE | 2020-09-14 22:38 | ROE_ITS ---
Date of service: 09/14/20 Time of Service: 11:38 Operative Note Operative Note DATE OF PROCEDURE: 09/14/20 PRE-OP DIAGNOSIS: Right Knee Osteoarthritis POST-OP DIAGNOSIS: same PROCEDURE: Right Total Knee Replacement SURGEON: Howard Hernandez HOME HEALTH AIDE CAREGIVER: Sandra Anthony ANESTHESIA: regional and spinal ESTIMATED BLOOD LOSS: 250 PATHOLOGY: none sent TOURNIQUET TIME: 0 COMPLICATIONS: None Patient was transported to: PACU Patient's condition: stable Implants: 1. Depuy Attune Cementless Cruciate Retaining Femoral Component, Size 9 2. Depuy Attune Cementless Rotating Platform Tibial Component, Size 7 3. Depuy Attune 9x6mm CR,RP Poly 4. Depuy Attune Patellar Component, Size 38 Indications: I have seen Juan in clinic for symptoms of knee arthritis, confirmed with radiographic findings. Juan has exhausted nonoperative methods and was having significant limitations in daily function and desired better function and less pain. He had a successful surgery on the left side and desired knee replacement on the right. I discussed the technical details of a knee replacement. I explained the risks of the procedure to include, but not limited to, bleeding, infection, pain, stiffness, fracture, damage to nerves and vessels, damage to muscles and tendons, loosening, need for repeat procedure, blood clot and cardiopulmonary demise. Despite these risks, Juan elected to proceed. Findings: There was significant signs of arthritis throughout the knee. Large posterior osteophytes prevented flexion and were removed witha chisel. Procedure Description: Juan was greeted in the preoperative holding area where the correct side was identified and marked. The consent was reviewed with the patient and signed. The history and physical was updated. All questions were answered. Preoperative medications were administered: Acetaminophen 1000mg, Celebrex 400mg, and Gabapentin 300mg. An adductor canal block was then administered by the anesthesia team in the PACU. Juan was taken back to the operating room. A spinal anesthestic was then administered. The patient was placed into the supine position on the operating room table. A nonsterile tourniquet was placed high onto the leg but only used for cementing. Posts were placed for positioning during the procedure. All bony prominences were well padded. Prophylactic antibiotics in the form of Cefazolin were administered. 1g of Tranxemic Acid was given intravenously within 30 minutes of incision. The right leg was then prepped with Chloraprep and draped in a standard fashion with impervious stockinette. A second prep with Chloraprep was performed prior to application of Iodine impregnated skin protection. A timeout to confirm correct identity, side and site, procedure, allergies, anesthesia, and medical concerns was performed. With the knee in some flexion, a midline incision was made overlying the knee. Full thickness skin flaps were raised once the extensor mechanism was encountered. These were raised medially and laterally. Any bleeding was controlled with electrocautery. Once the extensor mechanism was fully exposed, a medial parapatellar arthrotomy was performed in a flexed position. All bleeding from the arthrotomy and the geniculate arteries was coagulated. A medial subperiosteal peel was performed with electrocautery to the midcoronal plane. Due to the significant varus deformity the entire medial tibial plateau was exposed. The fat pad was removed while keeping the patellar tendon protected. The anterior distal femur synovium was removed for later visualization. The ACL and PCL were resected and the anterior horn of the lateral meniscus was transected. The knee was then flexed with the patella everted. Large osteophytes from the tibia were removed. Large osteophytes from the femur were removed. Even after removing the osteophytes and resecting the ACL and PCL, there was limited flexion to only about 90 or so degrees. Using a step drill, and based on preoperative templating, the femoral canal was entered. This was done with a step drill without any difficulty. The intramedullary distal femoral cut guide was inserted, set to a 5 degree valgus cut and 10mm cut thickness. The distal femoral cut guide was then held in position and pinned. With the soft tissues protected, the distal cut was performed. This was passed over a few times to ensure a planar cut. I then turned attention to the tibia. The extramedullary guide was placed onto the leg. The distal aspect was slid medial to adjust for position of center of ankle and stay in line with shaft of the tibia. Approximately 3-5 degrees of posterior slope was kept in the proximal cutting guide. The center of the guide was aligned with the PCL. The stylus was used to assess cut thickness. The medial side, most involved side, was set for a 3mm cut. This was then held in position and pinned into place with 2 additional pins and a cross pin for stability. The medial and lateral collateral ligaments were protected and the cut was performed. With this completed, it was assessed and noted to be of appropriate dimensions. The guide was removed. A spacer block was inserted and the knee was brought into extension. The 6mm spacer block provided full extension, without hyperextension and with stability of both the medial and lateral collateral ligaments was assessed. The pins from the femur and the tibia were then removed. The distal femur was then sized. The anterior stylus was placed onto the lateral ridge of the anterior femur. This indicated a size 9 femur. The external rotation of the guide was adjusted to 3 degrees to match the epicondylar axis, perpendicular to Lesia?s line. The 4-in-1 cutting guide was the placed. The posterior medial femur cut was evaluated and appeared of good thickness. The spacer block was inserted underneath the cutting guide and stability was confirmed in 90 degrees of flexion. An samantha wing was used to confirm appropriate position of the anterior cut to avoid notching. This cutting guide was ensured to be flush on the cut surface and then pinned into place with headed pins. While protecting the soft tissues, quad tendon, and collateral ligaments, the anterior and posterior cuts were performed with a saw. The central two pins were removed and the posterior and anterior chamfers were cut next. The notch-cutting guide was placed. This was pinned to lateralize the femoral component as much as possible while keeping it flush on the cut surface. This was then pinned into position. A reciprocating saw was used to make the notch cut. A rasp smoothed the cut surfaces. The medial and lateral menisci were removed. A trial femoral component was then inserted, impacted down to the cut surfaces, and the lug holes were drilled. A provisional trial tibial component was placed and the knee was brought through range of motion. There was noted to be excellent extension and flexion. There was no significant instability. The patella was tracking without thumbs. A size 6mm polyethylene component provided the best range of motion and stability with less than 2mm gapping with medial and lateral stress and full extension without significant hyperextension. The tibial cut surface was fully exposed. The tibia was then sized as a 7. The tibia had been previously marked during trialing to correspond to the center of the tibial component to help with rotation. The trial was aligned to this justin, approximately rotated to the medial 1/3rd of the tibial tubercle. The trial was pinned into place. The tibia was prepared with a reamer and a keel punch and lug holes. The knee was then brought into extension and the patella was measured as 28mm. Using the patellar clamp and cut guide, this was resected to a flat surface with at least 13mm of thickness remaining. The size 38 patella fit the best. This was oriented and then clamped into position. The lugs were drilled. The trial components were removed. The final components were opened on the back table. The periosteal and capsular tissues, especially posteriorly, around the knee were then systematically injected with a periarticular cocktail consisting of 50cc 0.25% Marcaine, 30mg Ketorolac, 20cc of Exparal and 50cc of injectable saline. The knee was thoroughly irrigated with a pulse lavage and dried. Irrisept was also used to irrigate the tissues. On the back table, with the implants opened, the cement was mixed. One batche of high viscosity cement were prepared with vacuum assistance. After the cement was ready a small amount was placed on the cut surface of the patella and the patellar button was clamped into position and held. During this process attention was turned to the gutters of the knee and for all interfaces for any excess cement. While the cement was hardening, the cementless knee components were placed. Starting with the tibial component, the tibia was subluxed anteriorly and the lug holes of the component were lined up. The tibia was then impacted with an impactor and mallet until the tibial component was in contact with the tibia. The final polyethylene component was inserted. Then, the femo ral component was inserted. The lug holes were aligned and the component was impacted into position. The knee was irrigated with Irrisept chlorhexadine solution. This was allowed to sit in the knee for 3 minutes. After the cement had finally cured, approximately 15min, the clamp was removed from the patella and the knee was taken through range of motion. The patella was tracking with a no-thumbs technique. The capsule was then reapproximated with a No. 1 Vicryl at multiple locations. The capsule was finally closed with a No. 2 Stratafix, barbed suture. The tourniquet was then released and the arthrotomy appeared watertight without significant bleeding. The second dosing of 1g TXA was started. Deep tissues were then reapproximated with 0 Vicryl and 2-0 Vicryl. The skin was closed with a running 3-0 Monocryl in a subcuticular fashion. This was reinforced with skin glue. A Mepilex silver dressing was applied along with a [id number] MIRIAN wrap. A CryoCuff was applied. Juan was transferred to the hospital bed without difficulty an suffering no apparent complication. Juan has a good prognosis. Physical therapy will start today and without restrictions, weight-bearing as tolerated. Aspirin 81mg BID will be used for DVT prophylaxis.
== END 2020-09-14 15:48 | disposition home or self-care (01) ==
PROVIDERS: PCP Family Medicine; Visit Provider Student in an Organized Health Care Education/Training Program
PROC: (CPT 27447; principal; 2020-09-14 11:30)
DX: M17.11 Unilateral primary osteoarthritis, right knee (principal); M25.561 Pain in right knee; Z96.651 Presence of right artificial knee joint; G89.18 Other acute postprocedural pain; I10 Essential (primary) hypertension; E11.9 Type 2 diabetes mellitus without complications; Z96.652 Presence of left artificial knee joint
CPT/HCPCS: 27447; 76942; 97162; 97530; NC; J0690; J1100; J1885; J2001; J2250; J2405

== ENCOUNTER 2020-09-27 14:23 | Outpatient (CLI) | payer MEDICARE, OTHER, SELFPAY ==
--- NOTE | 2020-09-27 14:00 | DI.RAD_ITS ---
EXAM: XR STANDING ALIGNMENT CLINICAL HISTORY: f/u R TKA. TECHNIQUE: 2D digital imaging was performed. COMPARISON: CR XR STANDING ALIGNMENT from 08/23/2020 FINDINGS: There has been interval placement of a right knee prosthesis. There are now bilateral prostheses in both knees which appear to be in satisfactory position. No fracture or loosening. Hips appear unrem arkable. Ankles unremarkable. IMPRESSION: DATA REPOSITORY: RADIATION DOSE DELIVERED:
--- NOTE | 2020-09-27 14:00 | DI.RAD_ITS ---
EXAM: XR KNEE RT 1V CLINICAL HISTORY: f/u R TKA. TECHNIQUE: 2D digital imaging was performed. COMPARISON: CR XR KNEE LT 1V from 08/23/2020 FINDINGS: Single lateral view of the right knee reveals satisfactory position of the recently placed prosthesis . No fracture evident. No obvious loosening. No radiographic evidence of osteomyelitis IMPRESSION: DATA REPOSITORY: RADIATION DOSE DELIVERED:
== END 2020-09-27 14:24 | disposition home or self-care (01) ==
LOC: DIORS 14:24
PROVIDERS: PCP Family Medicine; Referring Provider Family Medicine; Visit Provider Student in an Organized Health Care Education/Training Program
DX: Z96.651 Presence of right artificial knee joint (principal)
CPT/HCPCS: 73560; 77073

== ENCOUNTER → 2020-10-25 15:02 | Outpatient (BNVA) | payer MEDICARE, OTHER, SELFPAY | PROVIDERS: PCP Family Medicine; Visit Provider Student in an Organized Health Care Education/Training Program | DX: Z47.1 Aftercare following joint replacement surgery (principal); Z96.653 Presence of artificial knee joint, bilateral; M70.61 Trochanteric bursitis, right hip ==

== ENCOUNTER → 2020-11-29 14:55 | Outpatient (BNVA) | payer MEDICARE, OTHER, SELFPAY | PROVIDERS: PCP Family Medicine; Visit Provider Student in an Organized Health Care Education/Training Program | DX: Z47.1 Aftercare following joint replacement surgery (principal); Z96.652 Presence of left artificial knee joint; Z96.651 Presence of right artificial knee joint ==

== ENCOUNTER 2021-02-18 01:09 | Outpatient (CLI) | payer MEDICARE, OTHER, SELFPAY ==
[2021-02-18 13:57] LABS: Anion Gap 11.6 mmol/L (3-11); BUN 17 mg/dL (7-18); CO2 25.4 mmol/L (21.0-32.0); CREATININE 1.4 mg/dL (0.70-1.30); Calcium 9.4 mg/dL (8.5-10.1); Chloride 107 mmol/L (98-107); Estimated GFR 50.55 (mL/min/1.73m2); Glucose 102 mg/dL (74-106); Potassium 3.9 mmol/L (3.5-5.1); Sodium 144 mmol/L (136-145)
[2021-02-18 19:31] LABS: Calculated LDL 108 mg/dL (<100); Cholesterol 191 mg/dL (<200); HDL Cholesterol 47 mg/dL (40-60); Triglyceride 181 mg/dL (<150)
[2021-02-18 22:36] LABS: PSA, Screening 5.8 ng/mL (0.0-4.5)
== END 2021-02-18 01:10 | disposition home or self-care (01) ==
LOC: LOS 01:09
PROVIDERS: PCP Family Medicine; Visit Provider Nurse Practitioner Gerontology
DX: E87.1 Hypo-osmolality and hyponatremia (principal); E78.5 Hyperlipidemia, unspecified; R97.20 Elevated prostate specific antigen [PSA]; Z12.5 Encounter for screening for malignant neoplasm of prostate
CPT/HCPCS: 36415; 80048; 80061; 84153

== ENCOUNTER → 2021-03-07 09:59 | Outpatient (BNVA) | payer MEDICARE, OTHER, SELFPAY | PROVIDERS: PCP Family Medicine; Referring Provider Family Medicine; Visit Provider Nurse Practitioner Gerontology | DX: R35.1 Nocturia (principal); R97.20 Elevated prostate specific antigen [PSA] | CPT/HCPCS: 81003; 99214 ==

== ENCOUNTER 2021-04-04 02:21 | Outpatient (CLI) | payer MEDICARE, SELFPAY | END 2021-04-04 02:22 | disposition home or self-care (01) | LOC: LOS 02:22 | PROVIDERS: PCP Family Medicine; Visit Provider Nurse Practitioner Gerontology | DX: R97.20 Elevated prostate specific antigen [PSA] (principal) | CPT/HCPCS: 36415; 84154 ==

== ENCOUNTER → 2021-04-13 09:26 | Outpatient (BNVA) | payer MEDICARE, SELFPAY | PROVIDERS: PCP Family Medicine; Visit Provider Nurse Practitioner Gerontology | DX: N40.1 Benign prostatic hyperplasia with lower urinary tract symptoms (principal); R97.20 Elevated prostate specific antigen [PSA] | CPT/HCPCS: 99214 ==

== ENCOUNTER 2021-09-19 15:44 | Outpatient (CLI) | payer MEDICARE, SELFPAY ==
--- NOTE | 2021-09-19 15:00 | DI.RAD_ITS ---
Exam(s) XR KNEE RT 2V AP,LAT EXAM: XR KNEE RT 2V AP,LAT CLINICAL HISTORY: annual f/u R TKA. TECHNIQUE: 2D digital imaging was performed. COMPARISON: CR XR KNEE RT 1V from 09/27/2020 FINDINGS: Components of the prosthesis remain satisfactory position alignment. No fracture loosening evident. IMPRESSION: DATA REPOSITORY: RADIATION DOSE DELIVERED:
--- NOTE | 2021-09-19 15:15 | DI.RAD_ITS ---
Exam(s) XR KNEE LT 2V AP,LAT EXAM: XR KNEE LT 2V AP,LAT CLINICAL HISTORY: ANNUAL F/U L TKA. TECHNIQUE: 2D digital imaging was performed. COMPARISON: CR XR KNEE LT 1V from 08/23/2020 CR XR KNEE RT 1V from 09/27/2020 FINDINGS: Continued satisfactory position alignment components of the prostheses. No fracture or loosening. 2 centimeter calcified structures again posterior which is probably within popliteal fossa Ingram cyst. IMPRESSION: DATA REPOSITORY: RADIATION DOSE DELIVERED:
== END 2021-09-19 15:45 | disposition home or self-care (01) ==
LOC: DIORS 15:44
PROVIDERS: PCP Family Medicine; Referring Provider Family Medicine; Visit Provider Student in an Organized Health Care Education/Training Program
DX: Z96.651 Presence of right artificial knee joint (principal); Z96.652 Presence of left artificial knee joint; Z47.1 Aftercare following joint replacement surgery
CPT/HCPCS: 99212; 73560

== ENCOUNTER 2021-10-19 03:41 | Outpatient (CLI) | payer MEDICARE, SELFPAY ==
[2021-10-19 17:47] LABS: PSA, Diagnostic 4.9 ng/mL (0.0-4.5)
== END 2021-10-19 03:42 | disposition home or self-care (01) ==
LOC: LBO 03:41
PROVIDERS: PCP Family Medicine; Visit Provider Nurse Practitioner Gerontology
DX: R39.9 Unspecified symptoms and signs involving the genitourinary system (principal); R97.20 Elevated prostate specific antigen [PSA]
CPT/HCPCS: 36415; 84153

== ENCOUNTER → 2021-10-26 09:50 | Outpatient (BNVA) | payer MEDICARE, SELFPAY | PROVIDERS: PCP Family Medicine; Visit Provider Nurse Practitioner Gerontology | DX: N40.0 Benign prostatic hyperplasia without lower urinary tract symptoms (principal); R97.20 Elevated prostate specific antigen [PSA] | CPT/HCPCS: 99214 ==

== ENCOUNTER 2022-02-28 01:25 | Outpatient (CLI) | payer MEDICARE, SELFPAY ==
[2022-02-28 13:10] LABS: CREATININE 1.4 mg/dL (0.70-1.30); Calculated LDL 87 mg/dL (<100); Cholesterol 176 mg/dL (<200); HDL Cholesterol 44 mg/dL (40-60); Triglyceride 226 mg/dL (<150)
== END 2022-02-28 01:26 | disposition home or self-care (01) ==
LOC: LOS 01:25
PROVIDERS: PCP Family Medicine; Visit Provider Family Medicine
DX: I10 Essential (primary) hypertension (principal); E78.5 Hyperlipidemia, unspecified
CPT/HCPCS: 36415; 80061; 82565; 84132

== ENCOUNTER 2022-04-19 04:04 | Outpatient (CLI) | payer MEDICARE, SELFPAY ==
[2022-04-19 18:16] LABS: PSA, Diagnostic 4.1 ng/mL (<=4.5)
== END 2022-04-19 04:05 | disposition home or self-care (01) ==
LOC: LBO 04:04
PROVIDERS: PCP Family Medicine; Visit Provider Nurse Practitioner Gerontology
DX: R97.20 Elevated prostate specific antigen [PSA] (principal); R39.89 Other symptoms and signs involving the genitourinary system
CPT/HCPCS: 36415; 84153

== ENCOUNTER → 2022-04-26 10:00 | Outpatient (BNVA) | payer MEDICARE, SELFPAY | PROVIDERS: PCP Family Medicine; Referring Provider Family Medicine; Visit Provider Nurse Practitioner Gerontology | DX: N40.1 Benign prostatic hyperplasia with lower urinary tract symptoms (principal); R97.20 Elevated prostate specific antigen [PSA] | CPT/HCPCS: 51798; 99214 ==

== ENCOUNTER 2022-10-06 01:52 | Outpatient (CLI) | payer MEDICARE, SELFPAY | END 2022-10-06 01:53 | disposition home or self-care (01) | LOC: LBO 01:53 | PROVIDERS: PCP Family Medicine; Visit Provider Nurse Practitioner Gerontology | DX: R39.9 Unspecified symptoms and signs involving the genitourinary system (principal); R97.20 Elevated prostate specific antigen [PSA]; Z12.5 Encounter for screening for malignant neoplasm of prostate | CPT/HCPCS: 36415; 84153 ==

== ENCOUNTER → 2022-10-25 09:49 | Outpatient (BNVA) | payer MEDICARE, SELFPAY | PROVIDERS: PCP Family Medicine; Referring Provider Family Medicine; Visit Provider Nurse Practitioner Gerontology | DX: R39.89 Other symptoms and signs involving the genitourinary system (principal); R97.20 Elevated prostate specific antigen [PSA] | CPT/HCPCS: 99214 ==

== ENCOUNTER 2023-02-28 04:44 | Outpatient (CLI) | payer MEDICARE, SELFPAY ==
[2023-02-28 12:34] LABS: Anion Gap 9.3 mmol/L (3-11); BUN 19 mg/dL (7-18); CO2 27.7 mmol/L (21.0-32.0); CREATININE 1.6 mg/dL (0.70-1.30); Calcium 9.1 mg/dL (8.5-10.1); Calculated LDL 105 mg/dL (<100); Chloride 106 mmol/L (98-107); Cholesterol 192 mg/dL (<200); Estimated GFR 46.35 (mL/min/1.73m2); Glucose 103 mg/dL (74-106); HDL Cholesterol 45 mg/dL (40-60); Potassium 3.8 mmol/L (3.5-5.1); Sodium 143 mmol/L (136-145); Triglyceride 212 mg/dL (<150)
== END 2023-02-28 04:45 | disposition home or self-care (01) ==
PROVIDERS: PCP Family Medicine; Visit Provider Family Medicine
DX: E87.1 Hypo-osmolality and hyponatremia (principal); E78.5 Hyperlipidemia, unspecified
CPT/HCPCS: 36415; 80048; 80061

== ENCOUNTER 2023-10-15 05:04 | Outpatient (CLI) | payer MEDICARE, SELFPAY ==
[2023-10-16 00:23] LABS: PSA, Diagnostic 4.8 ng/mL (<=6.5)
== END 2023-10-15 05:05 | disposition home or self-care (01) ==
LOC: LBO 05:04
PROVIDERS: PCP Family Medicine; Visit Provider Nurse Practitioner Gerontology
DX: R97.20 Elevated prostate specific antigen [PSA] (principal); R39.89 Other symptoms and signs involving the genitourinary system
CPT/HCPCS: 36415; 84153

== ENCOUNTER → 2023-10-24 10:01 | Outpatient (BNVA) | payer MEDICARE, SELFPAY | PROVIDERS: PCP Family Medicine; Visit Provider Nurse Practitioner Gerontology | DX: N40.1 Benign prostatic hyperplasia with lower urinary tract symptoms (principal); R30.0 Dysuria; R35.0 Frequency of micturition; R39.15 Urgency of urination; R97.20 Elevated prostate specific antigen [PSA] | CPT/HCPCS: 81003; 99214 ==

== ENCOUNTER 2024-03-19 03:38 | Outpatient (CLI) | payer MEDICARE, SELFPAY ==
[2024-03-19 10:41] LABS: CREATININE 1.7 mg/dL (0.70-1.30); Calculated LDL 86 mg/dL (<100); Cholesterol 172 mg/dL (<200); Estimated GFR 42.83 (mL/min/1.73m2); HDL Cholesterol 50 mg/dL (40-60); Potassium 3.7 mmol/L (3.5-5.1); Triglyceride 183 mg/dL (<150)
[2024-03-20 08:47] LABS: HIV-1/2 Ag & Ab Screen Negative (Negative)
[2024-03-20 08:52] LABS: Hepatitis C Ab w Rflx HCV PCR Negative (Negative)
[2024-03-20 09:26] LABS: HBs Antibody, Quant <3.1 mIU/mL (See Note); Hep B Surface Ab Negative (See Note); Hepatitis B Core Antibody Negative (Negative); Hepatitis B Surface Antigen Negative (Negative)
[2024-03-20 12:16] LABS: Hemoglobin A1C 5.4 % (<5.7)
== END 2024-03-19 03:39 | disposition home or self-care (01) ==
PROVIDERS: PCP Family Medicine; Visit Provider Family Medicine
DX: E11.51 Type 2 diabetes mellitus with diabetic peripheral angiopathy without gangrene (principal); I70.209 Unspecified atherosclerosis of native arteries of extremities, unspecified extremity; I10 Essential (primary) hypertension; E78.5 Hyperlipidemia, unspecified; Z11.59 Encounter for screening for other viral diseases; Z00.00 Encounter for general adult medical examination without abnormal findings
CPT/HCPCS: 36415; 80061; 86704; 86706; 86803; 87340; 87389; 82565; 83036; 84132

== ENCOUNTER 2024-04-02 03:07 | Outpatient (CLI) | payer MEDICARE, SELFPAY ==
[2024-04-02 17:26] LABS: CREATININE 1.8 mg/dL (0.70-1.30); Estimated GFR 39.99 (mL/min/1.73m2)
[2024-04-16 13:26] LABS: Testosterone, Free 6.83 ng/dL (3.28-12.2); Testosterone, Total 234 ng/dL (240-950)
== END 2024-04-02 03:08 | disposition home or self-care (01) ==
LOC: LBO 03:07
PROVIDERS: PCP Family Medicine; Visit Provider Family Medicine
DX: I10 Essential (primary) hypertension (principal); R79.89 Other specified abnormal findings of blood chemistry; N28.9 Disorder of kidney and ureter, unspecified
CPT/HCPCS: 36415; 84402; 84403; 82565

== ENCOUNTER 2024-10-15 03:25 | Outpatient (CLI) | payer MEDICARE, SELFPAY | END 2024-10-15 03:26 | disposition home or self-care (01) | LOC: LBO 03:26 | PROVIDERS: PCP Family Medicine; Visit Provider Nurse Practitioner Gerontology | DX: R97.20 Elevated prostate specific antigen [PSA] (principal); R39.9 Unspecified symptoms and signs involving the genitourinary system | CPT/HCPCS: 36415; 84153 ==

== ENCOUNTER → 2024-10-22 09:59 | Outpatient (BNVA) | payer MEDICARE, SELFPAY | PROVIDERS: PCP Family Medicine; Visit Provider Nurse Practitioner Gerontology | DX: N40.1 Benign prostatic hyperplasia with lower urinary tract symptoms (principal); R35.0 Frequency of micturition; R39.12 Poor urinary stream; R39.15 Urgency of urination; N52.9 Male erectile dysfunction, unspecified; I10 Essential (primary) hypertension; R30.0 Dysuria; R97.20 Elevated prostate specific antigen [PSA] | CPT/HCPCS: 51798; 99214 ==

== ENCOUNTER 2025-03-25 03:56 | Outpatient (CLI) | payer MEDICARE, SELFPAY ==
[2025-03-25 12:35] LABS: Calculated LDL 95 mg/dL (<100); Cholesterol 178 mg/dL (<200); Estimated GFR 39.75 (mL/min/1.73m2); HDL Cholesterol 42 mg/dL (>or=40); Potassium 4.1 mmol/L (3.5-5.1); Triglyceride 207 mg/dL (<150)
[2025-03-25 18:08] LABS: PSA, Screening 6.1 ng/mL (<=6.5)
== END 2025-03-25 03:57 | disposition home or self-care (01) ==
LOC: LOS 03:56
PROVIDERS: PCP Family Medicine; Visit Provider Family Medicine
DX: Z12.5 Encounter for screening for malignant neoplasm of prostate (principal); E78.5 Hyperlipidemia, unspecified; Z13.220 Encounter for screening for lipoid disorders; I10 Essential (primary) hypertension
CPT/HCPCS: 36415; 80061; 84153; 82565; 84132

== ENCOUNTER 2025-04-03 14:09 | Outpatient (CLI) | payer MEDICARE, SELFPAY ==
[2025-04-10 16:03] LABS: Renin Activity, Plasma <0.6 ng/mL/h
== END 2025-04-03 14:10 | disposition home or self-care (01) ==
LOC: LBO 14:09
PROVIDERS: PCP Family Medicine; Visit Provider Family Medicine
DX: E78.5 Hyperlipidemia, unspecified (principal); I10 Essential (primary) hypertension
CPT/HCPCS: 36415; 83695; 82088; 84244

== ENCOUNTER 2025-04-10 01:10 | Outpatient (CLI) | payer MEDICARE, SELFPAY | END 2025-04-10 01:11 | disposition home or self-care (01) | LOC: LBO 01:11 | PROVIDERS: PCP Family Medicine; Visit Provider Family Medicine | DX: I10 Essential (primary) hypertension (principal) | CPT/HCPCS: 36415; 82088 ==

== ENCOUNTER → 2025-04-30 13:17 | Outpatient (BNVA) | payer MEDICARE, SELFPAY | PROVIDERS: PCP Family Medicine; Referring Provider Family Medicine; Visit Provider Physical Therapy Assistant | DX: Z12.11 Encounter for screening for malignant neoplasm of colon (principal); I10 Essential (primary) hypertension; Z86.0101 Personal history of adenomatous and serrated colon polyps | CPT/HCPCS: S0285 ==

== ENCOUNTER 2025-05-20 08:23 | Day surgery (SDC) | payer MEDICARE, SELFPAY ==
[2025-05-20 08:28] VITALS: BP 176/87; PULSE 48; RESP 16; TEMP 36.3; O2SAT 97
[2025-05-20] MEDS: Lactated Ringers 1,000 ML 80 ML IV (08:57)
--- NOTE | 2025-05-20 09:17 | W.ANESPRE ---
General Info Date of Service Date Performed: 05/20/25 Height: 5 ft 8.5 in Weight: 90.8 kg Body Mass Index (BMI): 29.9 Surgical Procedure: Operation Date: 05/20/25 10:35 Proposed Procedure Side Surgeon p Colonoscopy Marta Burnett MD Meds Allergies and Home Medications Allergies Allergy/AdvReac Type Severity Reaction Status Date / Time Sulfa (Sulfonamide Allergy Unknown FEVER Verified 05/20/25 08:46 Antibiotics) Home Medication ?Medication ?Instructions ?Recorded atenolol 100 mg tablet 50 mg (1/2 x 100 mg) PO DAILY #90 05/20/24 tab-caps amlodipine 10 mg tablet (Norvasc) 10 mg PO DAILY #90 tab-caps 02/20/25 atorvastatin 40 mg tablet 40 mg PO QPM #90 tabs 02/20/25 losartan 100 mg tablet (Cozaar) 100 mg PO DAILY #90 tab-caps 02/20/25 hydrochlorothiazide 12.5 mg tablet See Rx Instructions .Route 04/02/25 .COMPLEX #90 tabs losartan 100 1 tab PO DAILY #90 tabs 04/02/25 mg-hydrochlorothiazide 12.5 mg tablet bisacodyl 5 mg tablet,delayed 5 mg PO ONCE Colonoscopy Bowel 04/30/25 release Prep #4 tabs polyethylene glycol 3350 17 238 g PO ONCE #238 grams 04/30/25 gram/dose oral powder Current Visit Medications: Current Medications Generic Name Dose Route Start Last Admin Trade Name Freq PRN Reason Stop Dose Admin Ringer's Solution 1,000 mls @ 80 mls/hr 05/20/25 06:00 05/20/25 08:57 IV 05/20/25 23:59 80 mls/hr INFUSION KIANNA Administration IV Miscellaneous Supplies 1 each 05/20/25 06:00 Iv Access IV 05/20/25 23:59 DIRECTED KIANNA Sodium Chloride 0 ml 05/20/25 06:00 Normal Saline Flush 10 Ml Syr IV 05/20/25 23:59 PRN PRN Sodium Chloride 0 ml 05/20/25 06:00 Normal Saline 10 Ml Vial IJ 05/20/25 23:59 DIRECTED PRN Sterile Water 0 ml 05/20/25 06:00 Water,Injection,Sterile 10 Ml Vial IJ 05/20/25 23:59 DIRECTED PRN PFSH Active Problems Active Problems: Problem Status Onset Code Low testosterone Acute R79.89 Preventative health care Acute Z00.00 Trochanteric bursitis, right hip Acute M70.61 Status post total right knee replacement Acute 09/14/20 Z96.651 History of total left knee replacement Acute 08/10/20 Z96.652 Right lower quadrant abdominal pain Acute R10.31 Renal insufficiency Acute 01/08/18 N28.9 Knee pain Acute 12/06/12 M25.569 Hypokalemia Acute 01/05/17 E87.6 Hyperlipidemia Acute E78.5 Hematuria Acute R31.9 Essential hypertension Acute 07/15/13 I10 Hypertension Chronic I10 Lower urinary tract symptoms (LUTS) Acute R39.9 Scrotal rash Acute R21 Tubular adenoma Acute ~05/2020 D36.9 Rising PSA level Acute R97.20 Medical History Medical History Left knee DJD s/p left TKA Degenerative joint disease of right knee s/p right TKA Screening for colon cancer Family history of coronary arteriosclerosis (12/20/15) Father at 50 Family history of diabetes mellitus (12/20/15) mother 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) Surgical History Surgical History Hx of colonoscopy H/O hernia repair History of knee surgery Skin Cancer Removal MELANOMA KNEE SURGERY bilateral Tobacco Smoking/Tobacco Use Status: Never Passive smoking exposure: No Second hand exposure: Yes Alcohol Alcohol Intake: current Alcohol intake frequency: a few times a month Alcohol type: beer Substance Use Substance use: Never Substance use type: does not use Details: alcohol: t-30, marijuana: t-60 Vital Signs and Lab Results Vital Signs Most Recent Vital Signs in EMR: Most Recent Vital Signs Temp Pulse Resp BP Pulse Ox 36.3 C L 48 L 16 176/87 H 97 05/20/25 08:28 05/20/25 08:28 05/20/25 08:28 05/20/25 08:28 05/20/25 08:28 Anesthesia Assessment and Plan Anesthesia History Personal History: No History of General Anesthesia Family History: No Family History of Anesthesia Complications Exercise Tolerance Exercise Tolerance: Metabolic Equivalents>4 Pertinent Negatives Pertinent Negatives: No Symptoms of GERD Cardiac & Pulmonary Exam Cardiac Exam: Normal S1/S2 Heart Sounds Pulmonary Exam: Clear Bilateral Breath Sounds Implantable Cardiac Device Does patient have a Pacemaker or an ICD?: No Airway Exam Known Difficult Airway: No Mallampati Class: 2 Mouth Opening: Normal (> 3cm) Thyromental Distance: Greater than 3 cm Neck Range of Motion: Full ROM Neck Circumference: Normal Teeth Condition: Normal Dentition ASA Classification ASA Score: ASA 2 Emergency Case?: No NPO Status NPO Status: NPO Clears >2 hours, Solids >8 hours Anesthesia Plan Resuscitation Status: Full Code Anesthesia Technique: General Anesthesia Airway Planned: Natural Airway Monitors Used: Standard Monitors
[2025-05-20 09:18] VITALS: BMI 29.9
--- NOTE | 2025-05-20 09:53 | BOWEL_PTH ---
PATIENT: Juan Ortiz LOC: [facility] U#:[id number] AGE/SX: 69/M ROOM: RE05/20/[address]: Marta Burnett : 1955 BED: DIS: 05/20/2025 SPEC #: [id number] RECD: 05/20/25 12:43 STATUS: KRISHAN REQ #: [id number] EMMANUEL: 05/20/25 09:[address]: Marta Burnett DEPT: Surgical Specimen RECD BY: Lissette Rashid ENTERED: 05/20/25 12:44 SP TYPE: Bowel OTHR DR: Aeln Alexandre MD Tissues: 1 - BIOPSY BOWEL Procedures: GROSS AND MICRO LEVEL 4 Comments: [id number]
--- NOTE | 2025-05-20 09:58 | W.PM.DSUDISC ---
Date of service: 05/20/25 Discharge Plan Disposition Patient Disposition: Home Discharge Details Reason For Visit: Screening colonoscopy Attending Provider: Marta Burnett Primary Care Provider: Alen Alexandre Home Meds and New Rx's Prescriptions: Continued losartan-hydrochlorothiazide 100-12.5 mg tablet 1 tab PO DAILY Qty: 90 3RF Patient Comments: Not starting yet, will start it and dc the losartan and hctz separately atenolol 100 mg tablet 50 mg PO DAILY Qty: 90 3RF atorvastatin 40 mg tablet 40 mg PO QPM Qty: 90 3RF amlodipine [Norvasc] 10 mg tablet 10 mg PO DAILY Qty: 90 3RF losartan [Cozaar] 100 mg tablet 100 mg PO DAILY Qty: 90 3RF hydrochlorothiazide 12.5 mg tablet See Rx Instructions .ROUTE .COMPLEX Qty: 90 0RF Dose Instruction: TAKE 1 TABLET BY MOUTH DAILY Rx Instructions: TAKE 1 TABLET BY MOUTH DAILY Discontinued bisacodyl 5 mg tablet,delayed release (DR/EC) 5 mg PO ONCE Qty: 4 0RF Rx Instructions: Per Colonoscopy bowel prep instructions polyethylene glycol 3350 17 gram/dose powder 238 g PO ONCE Qty: 238 0RF Rx Instructions: For Colonoscopy bowel prep, as directed by office Discharge Instructions Instructions: Colon polyps Additional Instructions: Your colonoscopy went well today. You did have 1 small polyp which was removed. This polyp will be sent to pathology. Once we receive this pathology result back we will contact you regarding when to have your next colonoscopy performed. Please contact the general surgery office if you have further questions or concerns. 1. If tolerated, consume a soft, low fiber diet for 1-2 days. [address] Do not drive, drink alcohol, operate machinery, make critical decisions, or do activities that require coordination or balance for 24 hours. 3. Because air was put into your colon during the procedure, expelling air from your rectum (passing gas or farting) is normal. 4. You may not have a bowel movement for 1-3 days because of the colonoscopy prep. This is normal. 5. Go directly to the emergency room if you notice any of the following: Develop chills (warm to touch), or if you have a thermometer and your temperature is above 101 Difficulty breathing or difficultly swallowing Persistent vomiting Severe abdominal pain, other than gas cramps Severe chest pain Black, tarry stools Any bleeding ? exceeding one tablespoon 6. Call your physician if the site where your intravenous was started becomes red, swollen, painful, and warm to touch. 7. Your physician has reviewed your pre-procedure medications. Please continue to take those medications as previously ordered. You will be given specific information/education regarding any changes to your medications before leaving. Activity:: Activity as Tolerated Diet:: As Tolerated Discharge Orders Discharge Orders: Discharge Order (Routine); Ordered 05/20/25 Ordered By: Marta Burnett
--- NOTE | 2025-05-20 10:01 | W.COLOREPORT ---
Date of service: 05/20/25 Time of Service: 10:01 Colonoscopy Report Date of procedure: 05/20/25 Pre-op diagnosis general: History of colon polyps Procedure: Colonoscopy with polypectomy Surgeon: Marta Burnett Anesthesia Type: General:No Airway Estimated blood loss (mL): 1 Pathology: other (Rectal polyp) Complications: None Disposition: PACU Indications: Patient is a 69-year-old male who presents for a surveillance colonoscopy given history of colon polyps. He denies any concerning symptoms or changes in his bowel habits. Prep: Miralax/Dulcolax Procedure Start Time: :40 Procedure End Time: :54 Retraction Time: 9 Findings: Colonoscopy performed without difficulty. One small rectal polyp removed with cold forceps. Procedure Description: The patient was brought to the endoscopy suite and placed in the left lateral decubitus position. After induction of IV sedation, a digital rectal exam was performed. Digital exam was normal. The colonoscope was then passed to the cecum without difficulty. Cecal intubation was confirmed by the identification of the appendiceal orifice and the ileocecal valve. Upon withdrawing the colonoscope, all mucosal surfaces were inspected. The prep was noted to be adequate. In the rectum, there was a small polyp, which was removed using cold forceps in its entirety. Specimen was retrieved for pathological analysis. There was no other evidence of mucosal abnormality, polyp or cancer. Retroflexion in the rectum was unremarkable, except for some internal hemorrhoids.The patient tolerated the procedure well with no complications. Postoperatively, the patient was transferred to the recovery room in stable condition. [place] Bowel Prep [place] Bowel Prep Right Colon: 3 Left Colon: 3 Transverse Colon: 3 Total Score: 9
[2025-05-20 10:03] VITALS: BP 106/66; PULSE 42; RESP 16; TEMP 36.3; O2SAT 96
--- NOTE | 2025-05-20 10:25 | W.ANESPOSTOP ---
Postoperative Evaluation Date, Time and Location Date Performed: 05/20/25 Time Performed: 10:16 Patient Location: Day Surgery Unit Vital Signs Most Recent Imported Vital Signs: Most Recent Vital Signs Temp Pulse Resp BP Pulse Ox 36.3 C L 42 L 16 106/66 96 05/20/25 10:03 05/20/25 10:03 05/20/25 10:03 05/20/25 10:03 05/20/25 10:03 Pain Score Most Recent Pain Score: Most Recent Pain Score Pain Level 0 05/20/25 10:03 Assessment Mental Status: Awake (Alert & Oriented to Patient Baseline) Airway and Respiratory Function: Patent airway with normal (patient baseline) respiratory exam Cardiovascular Function: Hemodynamically Stable Hydration Status: Adequately Hydrated Nausea & Vomiting: No Nausea or Vomiting Pain: Pt. Denies Any Pain Peripheral Nerve Block: Patient did not receive a nerve block
[2025-05-20 10:30] VITALS: BP 143/82; PULSE 41; RESP 16; TEMP 36.3; O2SAT 96
== END 2025-05-20 10:39 | disposition home or self-care (01) ==
PROVIDERS: PCP Family Medicine; Visit Provider Student in an Organized Health Care Education/Training Program
PROC: 0DJD8ZZ Inspection of Lower Intestinal Tract, Via Natural or Artificial Opening Endoscopic (ICD-10-PCS; CPT 45378; principal; 2025-05-20 10:30)
DX: Z12.11 Encounter for screening for malignant neoplasm of colon (principal); K63.5 Polyp of colon
CPT/HCPCS: 45380; 88305; J2704